=== PATIENT | male | born 1950 | race Hispanic/Latino ===

== ENCOUNTER 2016-09-29 19:17 | Inpatient (IN) | payer BC ==
[2016-09-29] MEDS ORDERED: NACL 0.9% 1000 ML 1,000 ML IV ONE (21:35)
[2016-09-29 21:54] LABS: Basophils % (Auto) 0.1 % (0.0-1.8); Eosinophils % (Auto) 1.2 % (0.0-4.3); Hematocrit 39.1 % (35.5-45.6); Hemoglobin 12.3 gm/dl (11.8-15.2); Mean Corpuscular HGB Conc 32 % (32-34); Mean Corpuscular Volume 75 fl (84-94); Platelet Count 422 K/mm3 (140-440); Red Cell Distribution Width 18.7 % (13.2-15.2); White Blood Count 12.5 K/mm3 (4.5-11.0)
[2016-09-29 21:58] LABS: Mean Corpuscular Hemoglobin 24 pg (28-32)
--- NOTE | 2016-09-29 22:03 | Emergency Department Report ---
- General Chief complaint: Weakness Stated complaint: GENERAL WEAKNESS Time Seen by Provider: 09/29/16 20:38 Source: EMS Mode of arrival: Stretcher Limitations: Altered Mental Status, Physical Limitation - History of Present Illness Initial comments: 65-year-old male with a past medical history of lung cancer with metastasis, septic arthritis of the left knee in the past, diabetes, GERD, and hypertension presents to Hospital complains of generalized weakness. Patient states he has been able to move the past 4 days and has remained in his bed. He was found by EMS covered in urine and feces. Patient states he is taking an oral pill daily for his metastatic lung cancer denies previous history of IV chemotherapy or radiation. Patient denies fever. His chronic moderate bilateral knee pain which prevents him from walking. Pain is constant, worse palpation and movement P. He Has not had much to eat or drink in several days due to confinement to bed. Severity scale (0 -10): 0 - Related Data Home Medications Medication Instructions Recorded Confirmed Last Taken Famotidine [Pepcid] 20 mg PO DAILY 04/23/16 04/23/16 04/22/16 Previous Rx's Medication Instructions Recorded Last Taken Type Aspirin [Aspirin TAB] 325 mg PO QDAY #30 tablet 03/20/16 04/13/16 Rx Metoprolol [Lopressor TAB] 50 mg PO BID #60 tablet 03/20/16 04/22/16 Rx Potassium Chloride [K-Dur] 20 meq PO QDAY #30 tablet 03/20/16 04/22/16 Rx hydrALAZINE [Apresoline TAB] 25 mg PO Q8HR #90 tablet 03/20/16 04/22/16 Rx Hydrochlorothiazide [HCTZ] 25 mg PO QDAY tablet 06/03/16 Unknown Rx Lisinopril [Zestril TAB] 40 mg PO QDAY tablet 06/03/16 Unknown Rx NIFEdipine XL [Procardia Xl] 60 mg PO Q12H tablet 06/03/16 Unknown Rx oxyCODONE /ACETAMINOPHEN [Percocet 1 tab PO Q6H PRN #8 tablet 06/03/16 Unknown Rx 5/325 mg] Dexamethasone [Decadron] 4 mg PO Q12HR tablet 06/10/16 Unknown Rx Mirtazapine [Remeron] 15 mg PO QHS tablet 06/10/16 Unknown Rx Sertraline [Zoloft] 25 mg PO QDAY tablet 06/10/16 Unknown Rx Allergies Allergy/AdvReac Type Severity Reaction Status Date / Time No Known Allergies Allergy Unverified 11/10/15 21:08 ED Review of Systems ROS: Stated complaint: GENERAL WEAKNESS Other details as noted in HPI Comment: All other systems reviewed and negative Other: Constitutional: No fevers chills Eyes: No eye pain visual changes ENT: No ear pain or throat pain Neck: Denies pain Respiratory: Denies cough wheezing shortness of breath Cardiovascular: Denies chest pain, palpitations, syncope GI: Denies abdominal pain, nausea, vomiting : Denies dysuria Musculoskeletal: Denies back pain, Skin: Denies rash, lesions, erythema Neurologic: Denies headache ED Past Medical Hx - Past Medical History Previous Medical History?: Yes Hx Hypertension: Yes Hx Congestive Heart Failure: No Hx Diabetes: Yes (oral medication) Hx GERD: Yes Hx Arthritis: Yes (Left knee) Hx Asthma: No Hx COPD: No Hx HIV: No - Surgical History Past Surgical History?: No - Social History Smoking Status: Current Some Day Smoker - Medications Home Medications: Home Medications Medication Instructions Recorded Confirmed Last Taken Type Aspirin [Aspirin TAB] 325 mg PO QDAY #30 tablet 03/20/16 04/23/16 04/13/16 Rx Metoprolol [Lopressor TAB] 50 mg PO BID #60 tablet 03/20/16 04/23/16 04/22/16 Rx Potassium Chloride [K-Dur] 20 meq PO QDAY #30 tablet 03/20/16 04/23/16 04/22/16 Rx hydrALAZINE [Apresoline TAB] 25 mg PO Q8HR #90 tablet 03/20/16 04/23/16 Rx Famotidine [Pepcid] 20 mg PO DAILY 04/23/16 04/23/16 04/22/16 History Hydrochlorothiazide [HCTZ] 25 mg PO QDAY tablet 06/03/16 Unknown Rx Lisinopril [Zestril TAB] 40 mg PO QDAY tablet 06/03/16 Unknown Rx NIFEdipine XL [Procardia Xl] 60 mg PO Q12H tablet 06/03/16 Unknown Rx oxyCODONE /ACETAMINOPHEN [Percocet 1 tab PO Q6H PRN #8 tablet 06/03/16 Unknown Rx 5/325 mg] Dexamethasone [Decadron] 4 mg PO Q12HR tablet 06/10/16 Unknown Rx Mirtazapine [Remeron] 15 mg PO QHS tablet 06/10/16 Unknown Rx Sertraline [Zoloft] 25 mg PO QDAY tablet 06/10/16 Unknown Rx ED Physical Exam - General Limitations: Altered Mental Status, Physical Limitation - Other Other exam information: General: No limitations, patient is alert in no acute distress Head exam: Atraumatic, normocephalic Eyes exam: Normal appearance, pupils equal reactive to light, extraocular movements intact ENT: Moist mucous membrane, normal oropharynx Neck exam: Normal inspection, full range of motion, no meningismus nontender Respiratory exam: Clear to auscultation bilateral, no wheezes, rales, crackles Cardiovascular: Normal rate and rhythm, normal heart sounds Abdomen: Soft, nondistended, and nontender, with normal bowel sounds, no rebound, or guarding Extremity: Patient has bilateral lower extremity edema. Patient has pain to bilateral knees with movement and cannot lift his leg or flex his knee secondary to pain Back: Normal Inspection, full range of motion, no tenderness Neurologic: Alert, oriented x3, cranial nerves intact, nsation is grossly intact. 5/5 upper extremity strength. Equal foot dorsiflexion of unable to lift either leg off the bed secondary to pain Psychiatric: normal affect, normal mood Skin: Warm, dry, intact ED Course Vital Signs 09/29/16 09/29/16 20:01 20:59 Temperature 100.1 F H 99.8 F H Pulse Rate 116 H 115 H Respiratory 20 26 H Rate Blood Pressure 149/91 Blood Pressure 153/92 [Left] O2 Sat by Pulse 100 94 Oximetry - Reevaluation(s) Reevaluation #1: 09/30/16 00:51 Normal saline initiated for tachycardia. Patient also receiving supplemental oxygenation. RN reported initial hypoxia and was patient was placed on O2. Will obtain ABG on room air to verify O2 sat if this patient is not on supplemental oxygen although does have a history of metastatic lung cancer. PT denies sob or cp 09/30/16 00:51 09/30/16 00:52 09/30/16 00:54 ED Medical Decision Making - Lab Data Result diagrams: 09/29/16 21:20 09/29/16 21:20 Lab Results 09/29/16 09/29/16 09/29/16 Range/Units 21:20 21:20 21:20 WBC 12.5 H (4.5-11.0) K/mm3 RBC 5.20 H (3.65-5.03) M/mm3 Hgb 12.3 (11.8-15.2) gm/dl Hct 39.1 (35.5-45.6) % MCV 75 L (84-94) fl MCH 24 L (28-32) pg MCHC 32 (32-34) % RDW 18.7 H (13.2-15.2) % Plt Count 422 (140-440) K/mm3 Lymph % (Auto) 11.8 L (13.4-35.0) % [place] % (Auto) 5.7 (0.0-7.3) % Eos % (Auto) 1.2 (0.0-4.3) % Baso % (Auto) 0.1 (0.0-1.8) % Lymph # 1.5 (1.2-5.4) K/mm3 [place] # 0.7 (0.0-0.8) K/mm3 Eos # 0.2 (0.0-0.4) K/mm3 Baso # 0.0 (0.0-0.1) K/mm3 Seg Neutrophils % 81.2 H (40.0-70.0) % Seg Neutrophils # 10.2 H (1.8-7.7) K/mm3 PT (12.2-14.9) Sec. INR (0.87-1.13) Sodium 142 (137-145) mmol/L Potassium 4.0 (3.6-5.0) mmol/L Chloride 103.3 (98-107) mmol/L Carbon Dioxide 23 (22-30) mmol/L Anion Gap 20 mmol/L BUN 13 (9-20) mg/dL Creatinine 0.7 L (0.8-1.5) mg/dL Estimated GFR > 60 ml/min BUN/Creatinine Ratio 18.57 % Glucose 156 H (75-100) mg/dL Lactic Acid 1.8 (0.7-2.0) mmol/L Calcium 7.9 L (8.4-10.2) mg/dL Magnesium 2.0 (1.7-2.3) mg/dL Total Bilirubin 0.6 (0.1-1.2) mg/dL AST 13 (5-40) units/L ALT 11 (7-56) units/L Alkaline Phosphatase 68 (35-129) units/L Total Creatine Kinase (55-170) units/L CK-MB (CK-2) (0.0-4.0) ng/mL CK-MB (CK-2) Rel Index (0-4) Troponin T (0.00-0.029) ng/mL Total Protein 6.5 (6.3-8.2) g/dL Albumin 3.1 L (3.9-5) g/dL Albumin/Globulin Ratio 0.9 % TSH (0.270-4.200) mlU/mL Free T4 (0.76-1.46) ng/dL Urine Color (Yellow) Urine Turbidity (Clear) Urine pH (5.0-7.0) Ur Specific [place] (1.003-1.030) Urine Protein (Negative) mg/dL Urine Glucose (UA) (Negative) mg/dL Urine Ketones (Negative) mg/dL Urine Blood (Negative) Urine Nitrite (Negative) Urine Bilirubin (Negative) Urine Urobilinogen (<2.0) mg/dL Ur Leukocyte Esterase (Negative) Urine WBC (Auto) (0.0-6.0) /HPF Urine RBC (Auto) (0.0-6.0) /HPF U Epithel Cells (Auto) (0-13.0) /HPF Salicylates (2.8-20.0) mg/dL Acetaminophen (10.0-30.0) ug/mL Plasma/Serum Alcohol (0-0.07) gm% 09/29/16 09/29/16 09/29/16 Range/Units 21:20 21:20 21:20 WBC (4.5-11.0) K/mm3 RBC (3.65-5.03) M/mm3 Hgb (11.8-15.2) gm/dl Hct (35.5-45.6) % MCV (84-94) fl MCH (28-32) pg MCHC (32-34) % RDW (13.2-15.2) % Plt Count (140-440) K/mm3 Lymph % (Auto) (13.4-35.0) % [place] % (Auto) (0.0-7.3) % Eos % (Auto) (0.0-4.3) % Baso % (Auto) (0.0-1.8) % Lymph # (1.2-5.4) K/mm3 [place] # (0.0-0.8) K/mm3 Eos # (0.0-0.4) K/mm3 Baso # (0.0-0.1) K/mm3 Seg Neutrophils % (40.0-70.0) % Seg Neutrophils # (1.8-7.7) K/mm3 PT (12.2-14.9) Sec. INR (0.87-1.13) Sodium (137-145) mmol/L Potassium (3.6-5.0) mmol/L Chloride (98-107) mmol/L Carbon Dioxide (22-30) mmol/L Anion Gap mmol/L BUN (9-20) mg/dL Creatinine (0.8-1.5) mg/dL Estimated GFR ml/min BUN/Creatinine Ratio % Glucose (75-100) mg/dL Lactic Acid (0.7-2.0) mmol/L Calcium (8.4-10.2) mg/dL Magnesium (1.7-2.3) mg/dL Total Bilirubin (0.1-1.2) mg/dL AST (5-40) units/L ALT (7-56) units/L Alkaline Phosphatase (35-129) units/L Total Creatine Kinase (55-170) units/L CK-MB (CK-2) (0.0-4.0) ng/mL CK-MB (CK-2) Rel Index (0-4) Troponin T (0.00-0.029) ng/mL Total Protein (6.3-8.2) g/dL Albumin (3.9-5) g/dL Albumin/Globulin Ratio % TSH 7.590 H (0.270-4.200) mlU/mL Free T4 (0.76-1.46) ng/dL Urine Color (Yellow) Urine Turbidity (Clear) Urine pH (5.0-7.0) Ur Specific [place] (1.003-1.030) Urine Protein (Negative) mg/dL Urine Glucose (UA) (Negative) mg/dL Urine Ketones (Negative) mg/dL Urine Blood (Negative) Urine Nitrite (Negative) Urine Bilirubin (Negative) Urine Urobilinogen (<2.0) mg/dL Ur Leukocyte Esterase (Negative) Urine WBC (Auto) (0.0-6.0) /HPF Urine RBC (Auto) (0.0-6.0) /HPF U Epithel Cells (Auto) (0-13.0) /HPF Salicylates < 0.3 L (2.8-20.0) mg/dL Acetaminophen < 15.0 (10.0-30.0) ug/mL Plasma/Serum Alcohol (0-0.07) gm% 09/29/16 09/29/16 09/29/16 Range/Units 21:20 21:20 23:02 WBC (4.5-11.0) K/mm3 RBC (3.65-5.03) M/mm3 Hgb (11.8-15.2) gm/dl Hct (35.5-45.6) % MCV (84-94) fl MCH (28-32) pg MCHC (32-34) % RDW (13.2-15.2) % Plt Count (140-440) K/mm3 Lymph % (Auto) (13.4-35.0) % [place] % (Auto) (0.0-7.3) % Eos % (Auto) (0.0-4.3) % Baso % (Auto) (0.0-1.8) % Lymph # (1.2-5.4) K/mm3 [place] # (0.0-0.8) K/mm3 Eos # (0.0-0.4) K/mm3 Baso # (0.0-0.1) K/mm3 Seg Neutrophils % (40.0-70.0) % Seg Neutrophils # (1.8-7.7) K/mm3 PT (12.2-14.9) Sec. INR (0.87-1.13) Sodium (137-145) mmol/L Potassium (3.6-5.0) mmol/L Chloride (98-107) mmol/L Carbon Dioxide (22-30) mmol/L Anion Gap mmol/L BUN (9-20) mg/dL Creatinine (0.8-1.5) mg/dL Estimated GFR ml/min BUN/Creatinine Ratio % Glucose (75-100) mg/dL Lactic Acid (0.7-2.0) mmol/L Calcium (8.4-10.2) mg/dL Magnesium (1.7-2.3) mg/dL Total Bilirubin (0.1-1.2) mg/dL AST (5-40) units/L ALT (7-56) units/L Alkaline Phosphatase (35-129) units/L Total Creatine Kinase 169 (55-170) units/L CK-MB (CK-2) 2.2 (0.0-4.0) ng/mL CK-MB (CK-2) Rel Index 1.3 (0-4) Troponin T 0.035 H (0.00-0.029) ng/mL Total Protein (6.3-8.2) g/dL Albumin (3.9-5) g/dL Albumin/Globulin Ratio % TSH (0.270-4.200) mlU/mL Free T4 0.89 (0.76-1.46) ng/dL Urine Color (Yellow) Urine Turbidity (Clear) Urine pH (5.0-7.0) Ur Specific [place] (1.003-1.030) Urine Protein (Negative) mg/dL Urine Glucose (UA) (Negative) mg/dL Urine Ketones (Negative) mg/dL Urine Blood (Negative) Urine Nitrite (Negative) Urine Bilirubin (Negative) Urine Urobilinogen (<2.0) mg/dL Ur Leukocyte Esterase (Negative) Urine WBC (Auto) (0.0-6.0) /HPF Urine RBC (Auto) (0.0-6.0) /HPF U Epithel Cells (Auto) (0-13.0) /HPF Salicylates (2.8-20.0) mg/dL Acetaminophen (10.0-30.0) ug/mL Plasma/Serum Alcohol < 0.01 (0-0.07) gm% 09/29/16 09/30/16 Range/Units 23:02 00:24 WBC (4.5-11.0) K/mm3 RBC (3.65-5.03) M/mm3 Hgb (11.8-15.2) gm/dl Hct (35.5-45.6) % MCV (84-94) fl MCH (28-32) pg MCHC (32-34) % RDW (13.2-15.2) % Plt Count (140-440) K/mm3 Lymph % (Auto) (13.4-35.0) % [place] % (Auto) (0.0-7.3) % Eos % (Auto) (0.0-4.3) % Baso % (Auto) (0.0-1.8) % Lymph # (1.2-5.4) K/mm3 [place] # (0.0-0.8) K/mm3 Eos # (0.0-0.4) K/mm3 Baso # (0.0-0.1) K/mm3 Seg Neutrophils % (40.0-70.0) % Seg Neutrophils # (1.8-7.7) K/mm3 PT 14.6 (12.2-14.9) Sec. INR 1.15 H (0.87-1.13) Sodium (137-145) mmol/L Potassium (3.6-5.0) mmol/L Chloride (98-107) mmol/L Carbon Dioxide (22-30) mmol/L Anion Gap mmol/L BUN (9-20) mg/dL Creatinine (0.8-1.5) mg/dL Estimated GFR ml/min BUN/Creatinine Ratio % Glucose (75-100) mg/dL Lactic Acid (0.7-2.0) mmol/L Calcium (8.4-10.2) mg/dL Magnesium (1.7-2.3) mg/dL Total Bilirubin (0.1-1.2) mg/dL AST (5-40) units/L ALT (7-56) units/L Alkaline Phosphatase (35-129) units/L Total Creatine Kinase (55-170) units/L CK-MB (CK-2) (0.0-4.0) ng/mL CK-MB (CK-2) Rel Index (0-4) Troponin T (0.00-0.029) ng/mL Total Protein (6.3-8.2) g/dL Albumin (3.9-5) g/dL Albumin/Globulin Ratio % TSH (0.270-4.200) mlU/mL Free T4 (0.76-1.46) ng/dL Urine Color [place] (Yellow) Urine Turbidity Clear (Clear) Urine pH 6.0 (5.0-7.0) Ur Specific [place] 1.024 (1.003-1.030) Urine Protein 30 mg/dl (Negative) mg/dL Urine Glucose (UA) 50 (Negative) mg/dL Urine Ketones Tr (Negative) mg/dL Urine Blood Sm (Negative) Urine Nitrite Neg (Negative) Urine Bilirubin Neg (Negative) Urine Urobilinogen < 2.0 (<2.0) mg/dL Ur Leukocyte Esterase Neg (Negative) Urine WBC (Auto) < 1.0 (0.0-6.0) /HPF Urine RBC (Auto) 8.0 (0.0-6.0) /HPF U Epithel Cells (Auto) < 1.0 (0-13.0) /HPF Salicylates (2.8-20.0) mg/dL Acetaminophen (10.0-30.0) ug/mL Plasma/Serum Alcohol (0-0.07) gm% - EKG Data -: EKG Interpreted by Me (sinus tach 113 LAFB) - Radiology Data Radiology results: image reviewed (cxr: met dz appears somewhat improved compared to previous cxr no acute findings) - Medical Decision Making ABG reviewed and patient has hypoxia room air with a PO2 less than 60 therefore patient may qualify for home oxygen. Patient will be admitted to the hospital for further workup and evaluation. PT is unable to ambulate it may require additional care at home. Patient also has a mild elevation in troponin without ST elevation or T-wave inversions. - Differential Diagnosis dehydration, renal failure, infection, rhabdomyolysis Critical Care Time: No Critical care attestation.: If time is entered above; I have spent that time in minutes in the direct care of this critically ill patient, excluding procedure time. ED Disposition Clinical Impression: Lung cancer, Lung metastasis, Bilateral knee pain, Effusion of knee joint right , Diabetes, Generalized weakness, Inability to ambulate due to knee, Hypoxia, Elevated troponin Disposition: OP ADMITTED IP TO THIS HOSP Is pt being admited?: Yes Condition: Stable Time of Disposition: 23:52 (Dr cedeno/hosp)
[2016-09-29 22:37] LABS: Alanine Aminotransferase 11 units/L (7-56); Albumin 3.1 g/dL (3.9-5); Albumin/Globulin Ratio 0.9 %; Alkaline Phosphatase 68 units/L (35-129); Anion Gap 20 mmol/L; BUN/Creatinine Ratio 18.57; Bilirubin,Total 0.6 mg/dL (0.1-1.2); Blood Urea Nitrogen 13 mg/dL (9-20); Calcium 7.9 mg/dL (8.4-10.2); Carbon Dioxide 23 mmol/L (22-30); Chloride 103.3 mmol/L (98-107); Glucose 156 mg/dL (75-100); Sodium 142 mmol/L (137-145); Total Protein 6.5 g/dL (6.3-8.2)
[2016-09-29 23:48] LABS: Creatine Kinase MB 2.2 ng/mL (0.0-4.0)
[2016-09-29 23:58] LABS: INR 1.15 (0.87-1.13)
[2016-09-30 00:34] LABS: Urine Drugs of Abuse Note Disclamer
[2016-09-30 00:47] LABS: Bilirubin,Urine NEG (Negative); Blood,Urine SM (Negative); Ketones,Urine TR mg/dL (Negative); Leukocyte Esterase,Urine NEG (Negative); Nitrite,Urine NEG (Negative); Urobilinogen,Urine < 2.0 mg/dL (<2.0); WBC,Urine < 1.0 /HPF (0.0-6.0)
[2016-09-30] MEDS ORDERED: NACL 0.9% 1000 ML 1,000 ML ONE (01:13)
[2016-09-30 01:18] LABS: ISTAT Base Excess -4; ISTAT DEVICE 0; ISTAT PCO2 28.7 (35-45); ISTAT PH 7.451 (7.35-7.45); ISTAT PO2 54 (80-105); ISTAT SO2 90; ISTAT TCO2 21
--- NOTE | 2016-09-30 02:25 | Admit Criteria Form ---
Admission Criteria Documentation: MUSCULOSKELETAL DISEASE GRG Clinical Indications for Admission to Inpatient Care (Place 'X' for any and all applicable criteria): Hospital admission is needed for appropriate care of the patient because of ANY ONE of the following: [ ]I. Fracture, dislocation, or other musculoskeletal injury requiring inpatient care(medical) as indicated by ANY ONE of the following(4)(5)(6)(7) [ ]a) Vertebral fracture requiring observation for instability or neurologic compromise (8) [ ]b) Compartment syndrome (proven or cannot be ruled out during observation level of care) (9) [ ]c) Limb-threatening injury [ ]d) Major injury requiring inpatient stabilization such as traction initiation or external fixation before internal fixation or closure of complex or open fracture [ ]e) Major injury requiring inpatient treatment after emergency or observation level care (as appropriate) [ ]f) Severe pain requiring acute inpatient management [X ]II. Newly diagnosed or suspected bone, joint, or orthopedic device infection (e.g., osteomyelitis, septic arthritis) needing ANY ONE of the following(1)(2)(3) [ X]a) IV antibiotics that cannot be initiated in other than inpatient setting (e.g., patient too unstable or home infusion not available) [ ]b) Device removal or replacement [ ]c) Bone or soft tissue debridement [ ]d) Joint drainage (drain placement or repetitive aspirations) [ ]III. Severe rheumatologic disease (e.g., systemic lupus erythematosus, rheumatoid arthritis) with complications or comorbidities (Also use Optimal Recovery Care Criteria or General Recovery Criteria as appropriate on the basis of predominant condition), including ANY ONE of the following(10 )(11)(12)(13) [ ]a) Severe infection (e.g., INSIDE SALES [employer]OUNT EXECUTIVE infection, sepsis) (14) [ ]b) Respiratory complications, including ANY ONE of the following: [ ]i) Pleural effusion with respiratory compromise [ ]ii) Pulmonary hypertension with congestive failure [ ]iii) Respiratory failure [ ]iv) Pulmonary hemorrhage (15) [ ]c) Hematologic disease, including ANY ONE of the following: [ ]i) Coagulopathy with bleeding [ ]ii) Thrombosis with hypercoagulable state [ ]iii) Thrombotic thrombocytopenic purpura [ ]d) Cerebritis with seizures, psychosis, or other severe abnormalities [ ]e) Vertebral destruction with monitoring needed for cervical myelopathy& possible respiratory compromise [ ]f) Exacerbation that requires inpatient treatment (e.g., intravenous immunosuppression) (16) [ ]g) Acute renal failure [ ]IV. Severe vasculitis with complications or comorbidities (Also use Optimal Recovery Care Criteria or General Recovery Criteria as appropriate on the basis of predominant condition), including ANY ONE of the following(11)(12)(17)(18)(19)(20) [ ]a) INS[employer] SALES [employer]OUNT EXECUTIVE vasculitis with seizures, psychosis, or other severe abnormalities (22) [ ]b) Renal failure (16) [ ]c) Pulmonary hemorrhage (15) [ ]d) Cerebral infarction [ ]e) Gastrointestinal ischemia [ ]f) Gangrene or threatened amputation [ ]g) Exacerbation that requires inpatient treatment (e.g., intravenous immunosuppression) (19)(21) [ ]V. Severe myopathy as indicated by ANY ONE of the following (28)(29) [ ]a) New onset of airway compromise or inability to swallow [ ]b) Respiratory deterioration with observation needed for impending respiratory failure [ ]c) Exacerbation that requires inpatient treatment (e.g., intravenous immunosuppression) [ ]. Severe gout (crystal arthropathy) as indicated by ANY ONE of the following (23)(24) [ ]a) Severe pain requiring acute inpatient management [ ]b) Exacerbation that requires inpatient treatment (e.g., intravenous treatment) [ ]VII.Rhabdomyolysis and ANY ONE of the following (25)(26)(27) [ ]a) Acute renal failure [ ]b) Need for intravenous hydration after emergency or observation level care (as appropriate) [ ]c) Inability to maintain oral hydration [ ]d) Change in mental status [ ]e) Electrolyte abnormality that remains after emergency or observation level care (as appropriate) [ ]VIII Post amputation complication, as indicated by ANY ONE of the following [ ]a) Infection [ ]b) Dehiscence [ ]c) Myodesis failure [ ]IX. Severe pain requiring acute inpatient management as indicated by ALL of the following (30)(31)(32) [ ]a) Continuous or frequent (e.g., every 2 to 4 hrs) parenteral analgesics required [A] [ ]b) Rapid improvement expected from treatment or acute intervention ( e.g., surgery, anesthesia procedure[B] [ ]X. Musculoskeletal Disease and ALL of the following: [ ]a) Symptom or finding for which emergency and observation care have failed or are not considered appropriate (Use General Criteria: Observation Care as appropriate) [ ]b) Presence of ANY ONE of the following [ ]i) A General Admission Criteria [ ]ii) A Pediatric General Admission Criteria The original [facility] content created by [facility] has been revised. The portions of the content which have been revised are identified through the use of italic text or in bold, and [facility] has neither reviewed nor approved the modified material. All other unmodified content is copyright [facility]. Please see references footnoted in the original [facility] edition 2016 Admission Criteria Met: Yes
[2016-09-30] MEDS ORDERED: PERCOCET 5/325 PO PRN ×2 (03:45→13:43)
--- NOTE | 2016-09-30 03:45 | History and Physical Report ---
History of Present Illness Date of examination: 09/30/16 History of present illness: 65-year-old man with a history of metastatic lung cancer, hypertension, diabetes , GERD comes emergency room with complaints of nonbloody diarrhea 2. Patient stated diarrhea started after he started chemotherapy 9 days ago. Over the last 4 days he's been at home in bed unable to get out of bed because he is extremely weak . His roommate called EMS, EMS found him covered in stool and urine Patient denies chest pain, palpitation, shortness of breath, cough, abdominal pain, hematochezia, dysuria, frequency, focal weakness, dysarthria, fever chills , polydipsia polyuria, hot or cold intolerance, easy bruisability, or rash or bleeding from mucosal membrane, rhinorrhea, epistaxis, earache, tinnitus, blurry vision, eye discharge, anxiety, depression. Other review of systems negative PAST SURGICAL HISTORY: None SOCIAL HISTORY: Denies alcohol, tobacco, drugs FAMILY HISTORY: Hypertension Medications and Allergies Allergies Allergy/AdvReac Type Severity Reaction Status Date / Time No Known Allergies Allergy Unverified 11/10/15 21:08 Home Medications Medication Instructions Recorded Confirmed Last Taken Type Aspirin [Aspirin TAB] 325 mg PO QDAY #30 tablet 03/20/16 04/23/16 04/13/16 Rx Metoprolol [Lopressor TAB] 50 mg PO BID #60 tablet 03/20/16 04/23/16 04/22/16 Rx Potassium Chloride [K-Dur] 20 meq PO QDAY #30 tablet 03/20/16 04/23/16 04/22/16 Rx hydrALAZINE [Apresoline TAB] 25 mg PO Q8HR #90 tablet 03/20/16 04/23/16 Rx Famotidine [Pepcid] 20 mg PO DAILY 04/23/16 04/23/16 04/22/16 History Hydrochlorothiazide [HCTZ] 25 mg PO QDAY tablet 06/03/16 Unknown Rx Lisinopril [Zestril TAB] 40 mg PO QDAY tablet 06/03/16 Unknown Rx NIFEdipine XL [Procardia Xl] 60 mg PO Q12H tablet 06/03/16 Unknown Rx oxyCODONE /ACETAMINOPHEN [Percocet 1 tab PO Q6H PRN #8 tablet 06/03/16 Unknown Rx 5/325 mg] Dexamethasone [Decadron] 4 mg PO Q12HR tablet 06/10/16 Unknown Rx Mirtazapine [Remeron] 15 mg PO QHS tablet 06/10/16 Unknown Rx Sertraline [Zoloft] 25 mg PO QDAY tablet 06/10/16 Unknown Rx Exam - Physical Exam Narrative exam: Gen. appearance: Patient lying in bed, no apparent distress HEENT: Normocephalic, atraumatic, pupils equally round and reactive to light, extraocular movement intact, and no sclericterus,. No JVD or thyromegaly or nodule,neck supple, no carotid bruit ,mucous membranes dry, no exudate or erythema Heart: S1, S2, regular rate and rhythm Lungs: Clear to auscultation bilaterally, breathing comfortable Abdomen: Positive bowel sounds, nontender, nondistended, no organomegaly Extremity: No edema, cyanosis, clubbing Skin: No rash, nodules, warm, dry Neuro: Oriented 3, cranial nerves II-12 intact, speech is fluent, motor and sensory intact - Constitutional Vitals: Temp Pulse Resp BP Pulse Ox 99.8 F H 104 H 18 130/89 100 09/29/16 20:59 09/30/16 02:00 09/30/16 02:00 09/30/16 02:00 09/30/16 02:00 Results - Labs CBC & Chem 7: 09/29/16 21:20 09/29/16 21:20 Labs: Abnormal lab results 09/29/16 09/29/16 09/29/16 Range/Units 21:20 21:20 21:20 WBC 12.5 H (4.5-11.0) K/mm3 RBC 5.20 H (3.65-5.03) M/mm3 MCV 75 L (84-94) fl MCH 24 L (28-32) pg RDW 18.7 H (13.2-15.2) % Lymph % (Auto) 11.8 L (13.4-35.0) % Seg Neutrophils % 81.2 H (40.0-70.0) % Seg Neutrophils # 10.2 H (1.8-7.7) K/mm3 INR (0.87-1.13) POC ABG pH (7.35-7.45) POC ABG pCO2 (35-45) POC ABG pO2 (80-105) Creatinine 0.7 L (0.8-1.5) mg/dL Glucose 156 H (75-100) mg/dL Calcium 7.9 L (8.4-10.2) mg/dL Troponin T (0.00-0.029) ng/mL Albumin 3.1 L (3.9-5) g/dL Triglycerides (2-149) mg/dL Cholesterol (50-199) mg/dL TSH 7.590 H (0.270-4.200) mlU/mL Salicylates (2.8-20.0) mg/dL 09/29/16 09/29/16 09/29/16 Range/Units 21:20 23:02 23:02 WBC (4.5-11.0) K/mm3 RBC (3.65-5.03) M/mm3 MCV (84-94) fl MCH (28-32) pg RDW (13.2-15.2) % Lymph % (Auto) (13.4-35.0) % Seg Neutrophils % (40.0-70.0) % Seg Neutrophils # (1.8-7.7) K/mm3 INR 1.15 H (0.87-1.13) POC ABG pH (7.35-7.45) POC ABG pCO2 (35-45) POC ABG pO2 (80-105) Creatinine (0.8-1.5) mg/dL Glucose (75-100) mg/dL Calcium (8.4-10.2) mg/dL Troponin T 0.035 H (0.00-0.029) ng/mL Albumin (3.9-5) g/dL Triglycerides 154 H (2-149) mg/dL Cholesterol 200 H (50-199) mg/dL TSH (0.270-4.200) mlU/mL Salicylates < 0.3 L (2.8-20.0) mg/dL 09/30/16 Range/Units 01:12 WBC (4.5-11.0) K/mm3 RBC (3.65-5.03) M/mm3 MCV (84-94) fl MCH (28-32) pg RDW (13.2-15.2) % Lymph % (Auto) (13.4-35.0) % Seg Neutrophils % (40.0-70.0) % Seg Neutrophils # (1.8-7.7) K/mm3 INR (0.87-1.13) POC ABG pH 7.451 H (7.35-7.45) POC ABG pCO2 28.7 L (35-45) POC ABG pO2 54 L (80-105) Creatinine (0.8-1.5) mg/dL Glucose (75-100) mg/dL Calcium (8.4-10.2) mg/dL Troponin T (0.00-0.029) ng/mL Albumin (3.9-5) g/dL Triglycerides (2-149) mg/dL Cholesterol (50-199) mg/dL TSH (0.270-4.200) mlU/mL Salicylates (2.8-20.0) mg/dL Assessment and Plan Failure to thrive Diarrhea, rule out infection Abnormal cardiac enzymes Hypertension Diabetes Metastatic lung cancer GERD Admits medicine Start IV fluids, check stool studies Check fingersticks initiate insulin sliding scale Check cardiac enzymes, echo Consult physical therapy Start DVT prophylaxis Continue outpatient medications
--- NOTE | 2016-09-30 10:45 | XRay Report ---
AP CHEST :09/29/16 19:17:00 CLINICAL: Hypoxia COMPARISON:05/30/16 FINDINGS: Normal heart and pulmonary vasculature. The lungs are normally expanded and clear. The bones and soft tissues are normal. IMPRESSION: No acute cardiopulmonary process.
[2016-09-30] MEDS ORDERED: ASPIRIN ONE (13:22)
[2016-09-30] MEDS ORDERED: PEPCID ONE (13:23)
[2016-09-30] MEDS ORDERED: LOPRESSOR ONE (13:23)
[2016-09-30] MEDS ORDERED: ZOLOFT ONE ×2 (13:23→13:30)
[2016-09-30] MEDS ORDERED: DECADRON ONE (13:29)
[2016-09-30] MEDS: PEPCID PO SCH (13:38)
[2016-09-30] MEDS: ASPIRIN PO SCH (13:38)
[2016-09-30] MEDS: DECADRON PO SCH ×2 (13:38→21:39)
[2016-09-30] MEDS: LOPRESSOR PO SCH ×2 (13:38→23:03)
[2016-09-30] MEDS: ZOLOFT PO SCH (13:38)
[2016-09-30] MEDS ORDERED: D50W (25GM) IV PRN (13:43)
[2016-09-30] MEDS ORDERED: DULCOLAX PR PRN (13:43)
[2016-09-30] MEDS ORDERED: MILK OF MAGNESIA PO PRN (13:43)
[2016-09-30] MEDS ORDERED: TYLENOL PO PRN (13:43)
[2016-09-30] MEDS ORDERED: LOVENOX SUB-Q SCH (13:43)
[2016-09-30] MEDS ORDERED: ZOFRAN IV PRN (13:43)
[2016-09-30] MEDS: LOVENOX SUB-Q SCH (18:11)
[2016-09-30] MEDS: NOVOLOG SUB-Q SCH ×3 (18:11→23:01)
[2016-09-30 19:50] LABS: Creatine Kinase MB 1.5 ng/mL (0.0-4.0)
[2016-09-30 19:51] LABS: Creatine Kinase 72 units/L (55-170)
[2016-09-30 20:40] LABS: Creatine Kinase MB 2.2 ng/mL (0.0-4.0)
[2016-09-30] MEDS: REMERON PO SCH (21:34)
[2016-10-01] MEDS: NACL 0.9% 1000 ML 1,000 ML IV SCH (03:56)
[2016-10-01 06:42] LABS: Eosinophils % (Auto) 0.1 % (0.0-4.3); Hematocrit 29.6 % (35.5-45.6); Hemoglobin 9.5 gm/dl (11.8-15.2); Mean Corpuscular HGB Conc 32 % (32-34); Mean Corpuscular Volume 75 fl (84-94); Platelet Count 295 K/mm3 (140-440); Red Blood Count 3.94 M/mm3 (3.65-5.03); Red Cell Distribution Width 18.6 % (13.2-15.2); White Blood Count 5.9 K/mm3 (4.5-11.0)
[2016-10-01 06:44] LABS: Mean Corpuscular Hemoglobin 24 pg (28-32)
[2016-10-01 06:53] LABS: Anion Gap 15 mmol/L; Blood Urea Nitrogen 9 mg/dL (9-20); Calcium 6.8 mg/dL (8.4-10.2); Carbon Dioxide 24 mmol/L (22-30); Chloride 105.6 mmol/L (98-107); Glucose 190 mg/dL (75-100); Potassium 3.7 mmol/L (3.6-5.0); Sodium 141 mmol/L (137-145)
[2016-10-01] MEDS: NOVOLOG SUB-Q SCH ×4 (09:32→22:37)
[2016-10-01] MEDS: PEPCID PO SCH (12:03)
[2016-10-01] MEDS: LOVENOX SUB-Q SCH (12:04)
[2016-10-01] MEDS: DECADRON PO SCH ×2 (12:04→22:35)
[2016-10-01] MEDS: ZOLOFT PO SCH (12:04)
[2016-10-01] MEDS: ASPIRIN PO SCH (12:04)
[2016-10-01] MEDS: LOPRESSOR PO SCH ×2 (12:07→22:35)
--- NOTE | 2016-10-01 19:17 | Progress Note ---
Assessment and Plan Assessment and plan: 1. Diarrhea Watery diarrhea that started after chemotherapy Low grade fever and elevated WBC on admission Stool studies orfered, but not obtained yet Supportive care, IV fluids, electrolytes replacement as needed 2. Anemia Likely secondary to malignancy Monitor H&H 3. Metastatic lung cancer Stage IV LLL adenocarcinoma with multiple metastasis Receiving chemotherapy and radiotherapy Also on dexamethasone 4. Hypertension BP controlled only on metoprolol 5. Diabetes Accu-Cheks and SSI 6. Depression On Fluoxetine and Remeron 7. Malnutrition Secondary to malignancy/poor intake Diet supplementation 8. GI/DVT prophylaxis Lovenox History Interval history: still having diarrhea; but stool studies not obtained Complaining of generalized weakness Hospitalist Physical - Constitutional Vitals: Temp Pulse Resp BP Pulse Ox 97.9 F 69 20 119/74 94 10/01/16 07:10 10/01/16 15:40 10/01/16 15:40 10/01/16 15:40 10/01/16 07:49 General appearance: Present: no acute distress - EENT Eyes: Present: PERRL, EOM intact - Neck Neck: Present: supple, normal ROM. Absent: masses or JVD - Respiratory Respiratory effort: normal Respiratory: bilateral: diminished (L>R), rhonchi, negative: wheezing - Cardiovascular Rhythm: regular Heart Sounds: Present: S1 & S2. Absent: systolic murmur - Extremities Extremities: no ischemia - Abdominal General gastrointestinal: soft, non-tender, non-distended, normal bowel sounds - Integumentary Integumentary: Present: warm, dry, pale. Absent: jaundice - Psychiatric Psychiatric: cooperative - Neurologic Neurologic: CNII-XII intact, no focal deficits Results - Labs CBC & Chem 7: 10/04/16 05:28 10/01/16 06:00 Labs: Laboratory Last Values WBC 5.9 K/mm3 (4.5-11.0) 10/01/16 06:00 RBC 3.94 M/mm3 (3.65-5.03) 10/01/16 06:00 Hgb 9.5 gm/dl (11.8-15.2) L 10/01/16 06:00 Hct 29.6 % (35.5-45.6) L D 10/01/16 06:00 MCV 75 fl (84-94) L 10/01/16 06:00 MCH 24 pg (28-32) L 10/01/16 06:00 MCHC 32 % (32-34) 10/01/16 06:00 RDW 18.6 % (13.2-15.2) H 10/01/16 06:00 Plt Count 295 K/mm3 (140-440) 10/01/16 06:00 Lymph % (Auto) 15.0 % (13.4-35.0) 10/01/16 06:00 [place] % (Auto) 5.0 % (0.0-7.3) 10/01/16 06:00 Eos % (Auto) 0.1 % (0.0-4.3) 10/01/16 06:00 Baso % (Auto) 0.0 % (0.0-1.8) 10/01/16 06:00 Lymph # 0.9 K/mm3 (1.2-5.4) L 10/01/16 06:00 [place] # 0.3 K/mm3 (0.0-0.8) 10/01/16 06:00 Eos # 0.0 K/mm3 (0.0-0.4) 10/01/16 06:00 Baso # 0.0 K/mm3 (0.0-0.1) 10/01/16 06:00 Seg Neutrophils % 79.9 % (40.0-70.0) H 10/01/16 06:00 Seg Neutrophils # 4.7 K/mm3 (1.8-7.7) 10/01/16 06:00 PT 14.6 Sec. (12.2-14.9) 09/29/16 23:02 INR 1.15 (0.87-1.13) H 09/29/16 23:02 POC ABG pH 7.451 (7.35-7.45) H 09/30/16 01:12 POC ABG pCO2 28.7 (35-45) L 09/30/16 01:12 POC ABG pO2 54 (80-105) L 09/30/16 01:12 POC ABG HCO3 20.0 09/30/16 01:12 POC ABG Total CO2 21 09/30/16 01:12 POC ABG O2 Sat 90 09/30/16 01:12 POC ABG Base Excess -4 09/30/16 01:12 FiO2 21 % 09/30/16 01:12 Sodium 141 mmol/L (137-145) 10/01/16 06:00 Potassium 3.7 mmol/L (3.6-5.0) 10/01/16 06:00 Chloride 105.6 mmol/L (98-107) 10/01/16 06:00 Carbon Dioxide 24 mmol/L (22-30) 10/01/16 06:00 Anion Gap 15 mmol/L 10/01/16 06:00 BUN 9 mg/dL (9-20) 10/01/16 06:00 Creatinine 0.6 mg/dL (0.8-1.5) L 10/01/16 06:00 Estimated GFR > 60 ml/min 10/01/16 06:00 BUN/Creatinine Ratio 15.00 % 10/01/16 06:00 Glucose 190 mg/dL (75-100) H 10/01/16 06:00 POC Glucose 241 (70-105) H 10/01/16 16:59 Lactic Acid 2.0 mmol/L (0.7-2.0) 09/30/16 00:39 Calcium 6.8 mg/dL (8.4-10.2) L 10/01/16 06:00 Magnesium 2.0 mg/dL (1.7-2.3) 09/29/16 21:20 Total Bilirubin 0.6 mg/dL (0.1-1.2) 09/29/16 21:20 AST 13 units/L (5-40) 09/29/16 21:20 ALT 11 units/L (7-56) 09/29/16 21:20 Alkaline Phosphatase 68 units/L (35-129) 09/29/16 21:20 Total Creatine Kinase 79 units/L (55-170) 09/30/16 19:39 CK-MB (CK-2) 2.2 ng/mL (0.0-4.0) 09/30/16 19:39 CK-MB (CK-2) Rel Index 2.7 (0-4) 09/30/16 19:39 Troponin T 0.015 ng/mL (0.00-0.029) 09/30/16 19:39 Total Protein 6.5 g/dL (6.3-8.2) 09/29/16 21:20 Albumin 3.1 g/dL (3.9-5) L 09/29/16 21:20 Albumin/Globulin Ratio 0.9 % 09/29/16 21:20 Triglycerides 154 mg/dL (2-149) H 09/29/16 23:02 Cholesterol 200 mg/dL (50-199) H 09/29/16 23:02 LDL Cholesterol Direct 125 mg/dL (50-130) 09/29/16 23:02 HDL Cholesterol 45 mg/dL (40-59) 09/29/16 23:02 Cholesterol/HDL Ratio 4.44 % 09/29/16 23:02 TSH 7.590 mlU/mL (0.270-4.200) H 09/29/16 21:20 Free T4 0.89 ng/dL (0.76-1.46) 09/29/16 21:20 Urine Color [place] (Yellow) 09/30/16 00:24 Urine Turbidity Clear (Clear) 09/30/16 00:24 Urine pH 6.0 (5.0-7.0) 09/30/16 00:24 Ur Specific [place] 1.024 (1.003-1.030) 09/30/16 00:24 Urine Protein 30 mg/dl mg/dL (Negative) 09/30/16 00:24 Urine Glucose (UA) 50 mg/dL (Negative) 09/30/16 00:24 Urine Ketones Tr mg/dL (Negative) 09/30/16 00:24 Urine Blood Sm (Negative) 09/30/16 00:24 Urine Nitrite Neg (Negative) 09/30/16 00:24 Urine Bilirubin Neg (Negative) 09/30/16 00:24 Urine Urobilinogen < 2.0 mg/dL (<2.0) 09/30/16 00:24 Ur Leukocyte Esterase Neg (Negative) 09/30/16 00:24 Urine WBC (Auto) < 1.0 /HPF (0.0-6.0) 09/30/16 00:24 Urine RBC (Auto) 8.0 /HPF (0.0-6.0) 09/30/16 00:24 U Epithel Cells (Auto) < 1.0 /HPF (0-13.0) 09/30/16 00:24 Salicylates < 0.3 mg/dL (2.8-20.0) L 09/29/16 21:20 Urine Opiates Screen Presumptive negative 09/30/16 00:24 Urine Methadone Screen Presumptive negative 09/30/16 00:24 Acetaminophen < 15.0 ug/mL (10.0-30.0) 09/29/16 21:20 Ur Barbiturates Screen Presumptive negative 09/30/16 00:24 Ur Phencyclidine Scrn Presumptive negative 09/30/16 00:24 Ur Amphetamines Screen Presumptive negative 09/30/16 00:24 U Benzodiazepines Scrn Presumptive negative 09/30/16 00:24 Urine Cocaine Screen Presumptive negative 09/30/16 00:24 U Marijuana (THC) Screen Presumptive negative 09/30/16 00:24 Drugs of Abuse Note Disclamer 09/30/16 00:24 Plasma/Serum Alcohol < 0.01 gm% (0-0.07) 09/29/16 21:20 - Imaging and Cardiology Chest x-ray: image reviewed (diffuse bilateral metastasis)
[2016-10-01] MEDS: REMERON PO SCH (22:35)
[2016-10-02] MEDS: NACL 0.9% 1000 ML 1,000 ML IV SCH ×2 (02:47→17:25)
[2016-10-02] MEDS: NOVOLOG SUB-Q SCH ×4 (08:27→22:38)
[2016-10-02] MEDS: LOVENOX SUB-Q SCH (10:38)
[2016-10-02] MEDS: LOPRESSOR PO SCH ×2 (10:38→22:28)
[2016-10-02] MEDS: ASPIRIN PO SCH (10:38)
[2016-10-02] MEDS: PEPCID PO SCH (10:38)
[2016-10-02] MEDS: ZOLOFT PO SCH (10:38)
[2016-10-02] MEDS: DECADRON PO SCH ×2 (10:39→22:29)
--- NOTE | 2016-10-02 19:14 | Progress Note ---
Assessment and Plan Assessment and plan: 1. Diarrhea Watery diarrhea that started after chemotherapy Low grade fever and elevated WBC on admission Stool studies ordered, but still not obtained yet Supportive care, IV fluids, electrolytes replacement as needed 2. Anemia Likely secondary to malignancy Monitor H&H 3. Metastatic lung cancer Stage IV LLL adenocarcinoma with multiple metastasis Receiving chemotherapy and radiotherapy Also on dexamethasone 4. Hypertension BP controlled only on metoprolol 5. Diabetes Last A1C 7 Accu-Cheks and SSI 6. Depression On Fluoxetine and Remeron 7. Malnutrition Secondary to malignancy/poor intake Diet supplementation 8. GI/DVT prophylaxis Lovenox History Interval history: still having diarrhea; stool studies still not obtained complaining of generalized weakness Hospitalist Physical - Constitutional Vitals: Temp Pulse Resp BP Pulse Ox 98.1 F 62 20 156/86 96 10/02/16 17:00 10/02/16 17:00 10/02/16 17:00 10/02/16 17:00 10/02/16 17:00 General appearance: Present: no acute distress - EENT Eyes: Present: PERRL, EOM intact - Neck Neck: Present: supple, normal ROM. Absent: masses or JVD - Respiratory Respiratory effort: normal Respiratory: bilateral: diminished, rhonchi, negative: wheezing - Cardiovascular Rhythm: regular Heart Sounds: Present: S1 & S2. Absent: systolic murmur - Extremities Extremities: no ischemia - Abdominal General gastrointestinal: soft, non-tender, non-distended, normal bowel sounds - Psychiatric Psychiatric: cooperative - Neurologic Neurologic: CNII-XII intact, no focal deficits Results - Labs CBC & Chem 7: 10/04/16 05:28 10/01/16 06:00 Labs: Laboratory Last Values WBC 5.9 K/mm3 (4.5-11.0) 10/01/16 06:00 RBC 3.94 M/mm3 (3.65-5.03) 10/01/16 06:00 Hgb 9.5 gm/dl (11.8-15.2) L 10/01/16 06:00 Hct 29.6 % (35.5-45.6) L D 10/01/16 06:00 MCV 75 fl (84-94) L 10/01/16 06:00 MCH 24 pg (28-32) L 10/01/16 06:00 MCHC 32 % (32-34) 10/01/16 06:00 RDW 18.6 % (13.2-15.2) H 10/01/16 06:00 Plt Count 295 K/mm3 (140-440) 10/01/16 06:00 Lymph % (Auto) 15.0 % (13.4-35.0) 10/01/16 06:00 [place] % (Auto) 5.0 % (0.0-7.3) 10/01/16 06:00 Eos % (Auto) 0.1 % (0.0-4.3) 10/01/16 06:00 Baso % (Auto) 0.0 % (0.0-1.8) 10/01/16 06:00 Lymph # 0.9 K/mm3 (1.2-5.4) L 10/01/16 06:00 [place] # 0.3 K/mm3 (0.0-0.8) 10/01/16 06:00 Eos # 0.0 K/mm3 (0.0-0.4) 10/01/16 06:00 Baso # 0.0 K/mm3 (0.0-0.1) 10/01/16 06:00 Seg Neutrophils % 79.9 % (40.0-70.0) H 10/01/16 06:00 Seg Neutrophils # 4.7 K/mm3 (1.8-7.7) 10/01/16 06:00 PT 14.6 Sec. (12.2-14.9) 09/29/16 23:02 INR 1.15 (0.87-1.13) H 09/29/16 23:02 POC ABG pH 7.451 (7.35-7.45) H 09/30/16 01:12 POC ABG pCO2 28.7 (35-45) L 09/30/16 01:12 POC ABG pO2 54 (80-105) L 09/30/16 01:12 POC ABG HCO3 20.0 09/30/16 01:12 POC ABG Total CO2 21 09/30/16 01:12 POC ABG O2 Sat 90 09/30/16 01:12 POC ABG Base Excess -4 09/30/16 01:12 FiO2 21 % 09/30/16 01:12 Sodium 141 mmol/L (137-145) 10/01/16 06:00 Potassium 3.7 mmol/L (3.6-5.0) 10/01/16 06:00 Chloride 105.6 mmol/L (98-107) 10/01/16 06:00 Carbon Dioxide 24 mmol/L (22-30) 10/01/16 06:00 Anion Gap 15 mmol/L 10/01/16 06:00 BUN 9 mg/dL (9-20) 10/01/16 06:00 Creatinine 0.6 mg/dL (0.8-1.5) L 10/01/16 06:00 Estimated GFR > 60 ml/min 10/01/16 06:00 BUN/Creatinine Ratio 15.00 % 10/01/16 06:00 Glucose 190 mg/dL (75-100) H 10/01/16 06:00 POC Glucose 261 (70-105) H 10/02/16 15:47 Lactic Acid 2.0 mmol/L (0.7-2.0) 09/30/16 00:39 Calcium 6.8 mg/dL (8.4-10.2) L 10/01/16 06:00 Magnesium 2.0 mg/dL (1.7-2.3) 09/29/16 21:20 Total Bilirubin 0.6 mg/dL (0.1-1.2) 09/29/16 21:20 AST 13 units/L (5-40) 09/29/16 21:20 ALT 11 units/L (7-56) 09/29/16 21:20 Alkaline Phosphatase 68 units/L (35-129) 09/29/16 21:20 Total Creatine Kinase 79 units/L (55-170) 09/30/16 19:39 CK-MB (CK-2) 2.2 ng/mL (0.0-4.0) 09/30/16 19:39 CK-MB (CK-2) Rel Index 2.7 (0-4) 09/30/16 19:39 Troponin T 0.015 ng/mL (0.00-0.029) 09/30/16 19:39 Total Protein 6.5 g/dL (6.3-8.2) 09/29/16 21:20 Albumin 3.1 g/dL (3.9-5) L 09/29/16 21:20 Albumin/Globulin Ratio 0.9 % 09/29/16 21:20 Triglycerides 154 mg/dL (2-149) H 09/29/16 23:02 Cholesterol 200 mg/dL (50-199) H 09/29/16 23:02 LDL Cholesterol Direct 125 mg/dL (50-130) 09/29/16 23:02 HDL Cholesterol 45 mg/dL (40-59) 09/29/16 23:02 Cholesterol/HDL Ratio 4.44 % 09/29/16 23:02 TSH 7.590 mlU/mL (0.270-4.200) H 09/29/16 21:20 Free T4 0.89 ng/dL (0.76-1.46) 09/29/16 21:20 Urine Color [place] (Yellow) 09/30/16 00:24 Urine Turbidity Clear (Clear) 09/30/16 00:24 Urine pH 6.0 (5.0-7.0) 09/30/16 00:24 Ur Specific [place] 1.024 (1.003-1.030) 09/30/16 00:24 Urine Protein 30 mg/dl mg/dL (Negative) 09/30/16 00:24 Urine Glucose (UA) 50 mg/dL (Negative) 09/30/16 00:24 Urine Ketones Tr mg/dL (Negative) 09/30/16 00:24 Urine Blood Sm (Negative) 09/30/16 00:24 Urine Nitrite Neg (Negative) 09/30/16 00:24 Urine Bilirubin Neg (Negative) 09/30/16 00:24 Urine Urobilinogen < 2.0 mg/dL (<2.0) 09/30/16 00:24 Ur Leukocyte Esterase Neg (Negative) 09/30/16 00:24 Urine WBC (Auto) < 1.0 /HPF (0.0-6.0) 09/30/16 00:24 Urine RBC (Auto) 8.0 /HPF (0.0-6.0) 09/30/16 00:24 U Epithel Cells (Auto) < 1.0 /HPF (0-13.0) 09/30/16 00:24 Salicylates < 0.3 mg/dL (2.8-20.0) L 09/29/16 21:20 Urine Opiates Screen Presumptive negative 09/30/16 00:24 Urine Methadone Screen Presumptive negative 09/30/16 00:24 Acetaminophen < 15.0 ug/mL (10.0-30.0) 09/29/16 21:20 Ur Barbiturates Screen Presumptive negative 09/30/16 00:24 Ur Phencyclidine Scrn Presumptive negative 09/30/16 00:24 Ur Amphetamines Screen Presumptive negative 09/30/16 00:24 U Benzodiazepines Scrn Presumptive negative 09/30/16 00:24 Urine Cocaine Screen Presumptive negative 09/30/16 00:24 U Marijuana (THC) Screen Presumptive negative 09/30/16 00:24 Drugs of Abuse Note Disclamer 09/30/16 00:24 Plasma/Serum Alcohol < 0.01 gm% (0-0.07) 09/29/16 21:20
[2016-10-02] MEDS: REMERON PO SCH (22:28)
[2016-10-03] MEDS: NACL 0.9% 1000 ML 1,000 ML IV SCH ×2 (06:06→18:55)
[2016-10-03] MEDS: NOVOLOG SUB-Q SCH ×4 (06:59→23:00)
[2016-10-03] MEDS: ZOLOFT PO SCH (09:22)
[2016-10-03] MEDS: ASPIRIN PO SCH (09:22)
[2016-10-03] MEDS: PEPCID PO SCH (09:22)
[2016-10-03] MEDS: DECADRON PO SCH ×2 (09:23→21:14)
[2016-10-03] MEDS: LOPRESSOR PO SCH ×2 (09:23→21:14)
[2016-10-03] MEDS: LOVENOX SUB-Q SCH (09:24)
--- NOTE | 2016-10-03 18:20 | Progress Note ---
Assessment and Plan Assessment and plan: 1. Diarrhea Watery diarrhea that started after chemotherapy Low grade fever and elevated WBC on admission Stool studies ordered, but still not obtained yet Supportive care, IV fluids, electrolytes replacement as needed 2. Anemia Likely secondary to malignancy H&H stable Microcytic, so will obtain iron studies 3. Metastatic lung cancer Stage IV LLL adenocarcinoma with multiple metastasis Receiving chemotherapy and radiotherapy Also on dexamethasone 4. Hypertension BP controlled only on metoprolol 5. Diabetes Last A1C 7 Accu-Cheks and SSI 6. Depression On Fluoxetine and Remeron 7. Malnutrition Secondary to malignancy/poor intake Diet supplementation 8. Deconditioning/debility PT evaluation 9. GI/DVT prophylaxis Lovenox 10. Discharge planning issues Case management consulted for possible placement History Interval history: having less BM; stool studies obtained; no complaints except for weakness Hospitalist Physical - Constitutional Vitals: Temp Pulse Resp BP Pulse Ox 97.9 F 78 20 186/94 95 10/03/16 16:00 10/03/16 16:00 10/03/16 16:00 10/03/16 16:00 10/03/16 16:00 General appearance: Present: no acute distress - Neck Neck: Present: supple, normal ROM. Absent: masses or JVD - Respiratory Respiratory effort: normal Respiratory: bilateral: diminished, negative: rales, wheezing - Cardiovascular Rhythm: regular Heart Sounds: Present: S1 & S2. Absent: systolic murmur - Extremities Extremities: no ischemia - Abdominal General gastrointestinal: soft, non-tender, non-distended, normal bowel sounds - Psychiatric Psychiatric: cooperative - Neurologic Neurologic: CNII-XII intact, no focal deficits Results - Labs CBC & Chem 7: 10/04/16 05:28 10/01/16 06:00 Labs: Laboratory Last Values WBC 5.9 K/mm3 (4.5-11.0) 10/01/16 06:00 RBC 3.94 M/mm3 (3.65-5.03) 10/01/16 06:00 Hgb 9.5 gm/dl (11.8-15.2) L 10/01/16 06:00 Hct 29.6 % (35.5-45.6) L D 10/01/16 06:00 MCV 75 fl (84-94) L 10/01/16 06:00 MCH 24 pg (28-32) L 10/01/16 06:00 MCHC 32 % (32-34) 10/01/16 06:00 RDW 18.6 % (13.2-15.2) H 10/01/16 06:00 Plt Count 295 K/mm3 (140-440) 10/01/16 06:00 Lymph % (Auto) 15.0 % (13.4-35.0) 10/01/16 06:00 [place] % (Auto) 5.0 % (0.0-7.3) 10/01/16 06:00 Eos % (Auto) 0.1 % (0.0-4.3) 10/01/16 06:00 Baso % (Auto) 0.0 % (0.0-1.8) 10/01/16 06:00 Lymph # 0.9 K/mm3 (1.2-5.4) L 10/01/16 06:00 [place] # 0.3 K/mm3 (0.0-0.8) 10/01/16 06:00 Eos # 0.0 K/mm3 (0.0-0.4) 10/01/16 06:00 Baso # 0.0 K/mm3 (0.0-0.1) 10/01/16 06:00 Seg Neutrophils % 79.9 % (40.0-70.0) H 10/01/16 06:00 Seg Neutrophils # 4.7 K/mm3 (1.8-7.7) 10/01/16 06:00 PT 14.6 Sec. (12.2-14.9) 09/29/16 23:02 INR 1.15 (0.87-1.13) H 09/29/16 23:02 POC ABG pH 7.451 (7.35-7.45) H 09/30/16 01:12 POC ABG pCO2 28.7 (35-45) L 09/30/16 01:12 POC ABG pO2 54 (80-105) L 09/30/16 01:12 POC ABG HCO3 20.0 09/30/16 01:12 POC ABG Total CO2 21 09/30/16 01:12 POC ABG O2 Sat 90 09/30/16 01:12 POC ABG Base Excess -4 09/30/16 01:12 FiO2 21 % 09/30/16 01:12 Sodium 141 mmol/L (137-145) 10/01/16 06:00 Potassium 3.7 mmol/L (3.6-5.0) 10/01/16 06:00 Chloride 105.6 mmol/L (98-107) 10/01/16 06:00 Carbon Dioxide 24 mmol/L (22-30) 10/01/16 06:00 Anion Gap 15 mmol/L 10/01/16 06:00 BUN 9 mg/dL (9-20) 10/01/16 06:00 Creatinine 0.6 mg/dL (0.8-1.5) L 10/01/16 06:00 Estimated GFR > 60 ml/min 10/01/16 06:00 BUN/Creatinine Ratio 15.00 % 10/01/16 06:00 Glucose 190 mg/dL (75-100) H 10/01/16 06:00 POC Glucose 287 (70-105) H 10/03/16 17:22 Lactic Acid 2.0 mmol/L (0.7-2.0) 09/30/16 00:39 Calcium 6.8 mg/dL (8.4-10.2) L 10/01/16 06:00 Magnesium 2.0 mg/dL (1.7-2.3) 09/29/16 21:20 Total Bilirubin 0.6 mg/dL (0.1-1.2) 09/29/16 21:20 AST 13 units/L (5-40) 09/29/16 21:20 ALT 11 units/L (7-56) 09/29/16 21:20 Alkaline Phosphatase 68 units/L (35-129) 09/29/16 21:20 Total Creatine Kinase 79 units/L (55-170) 09/30/16 19:39 CK-MB (CK-2) 2.2 ng/mL (0.0-4.0) 09/30/16 19:39 CK-MB (CK-2) Rel Index 2.7 (0-4) 09/30/16 19:39 Troponin T 0.015 ng/mL (0.00-0.029) 09/30/16 19:39 Total Protein 6.5 g/dL (6.3-8.2) 09/29/16 21:20 Albumin 3.1 g/dL (3.9-5) L 09/29/16 21:20 Albumin/Globulin Ratio 0.9 % 09/29/16 21:20 Triglycerides 154 mg/dL (2-149) H 09/29/16 23:02 Cholesterol 200 mg/dL (50-199) H 09/29/16 23:02 LDL Cholesterol Direct 125 mg/dL (50-130) 09/29/16 23:02 HDL Cholesterol 45 mg/dL (40-59) 09/29/16 23:02 Cholesterol/HDL Ratio 4.44 % 09/29/16 23:02 TSH 7.590 mlU/mL (0.270-4.200) H 09/29/16 21:20 Free T4 0.89 ng/dL (0.76-1.46) 09/29/16 21:20 Urine Color [place] (Yellow) 09/30/16 00:24 Urine Turbidity Clear (Clear) 09/30/16 00:24 Urine pH 6.0 (5.0-7.0) 09/30/16 00:24 Ur Specific [place] 1.024 (1.003-1.030) 09/30/16 00:24 Urine Protein 30 mg/dl mg/dL (Negative) 09/30/16 00:24 Urine Glucose (UA) 50 mg/dL (Negative) 09/30/16 00:24 Urine Ketones Tr mg/dL (Negative) 09/30/16 00:24 Urine Blood Sm (Negative) 09/30/16 00:24 Urine Nitrite Neg (Negative) 09/30/16 00:24 Urine Bilirubin Neg (Negative) 09/30/16 00:24 Urine Urobilinogen < 2.0 mg/dL (<2.0) 09/30/16 00:24 Ur Leukocyte Esterase Neg (Negative) 09/30/16 00:24 Urine WBC (Auto) < 1.0 /HPF (0.0-6.0) 09/30/16 00:24 Urine RBC (Auto) 8.0 /HPF (0.0-6.0) 09/30/16 00:24 U Epithel Cells (Auto) < 1.0 /HPF (0-13.0) 09/30/16 00:24 Salicylates < 0.3 mg/dL (2.8-20.0) L 09/29/16 21:20 Urine Opiates Screen Presumptive negative 02/01/17 00:24 Urine Methadone Screen Presumptive negative 09/30/16 00:24 Acetaminophen < 15.0 ug/mL (10.0-30.0) 09/29/16 21:20 Ur Barbiturates Screen Presumptive negative 09/30/16 00:24 Ur Phencyclidine Scrn Presumptive negative 09/30/16 00:24 Ur Amphetamines Screen Presumptive negative 09/30/16 00:24 U Benzodiazepines Scrn Presumptive negative 09/30/16 00:24 Urine Cocaine Screen Presumptive negative 09/30/16 00:24 U Marijuana (THC) Screen Presumptive negative 09/30/16 00:24 Drugs of Abuse Note Disclamer 09/30/16 00:24 Plasma/Serum Alcohol < 0.01 gm% (0-0.07) 09/29/16 21:20
[2016-10-03] MEDS: REMERON PO SCH (21:14)
[2016-10-04 06:17] LABS: Hematocrit 27.9 % (35.5-45.6)
[2016-10-04 06:47] LABS: Iron 39 ug/dL (49-181); Total Iron Binding Capacity 192 mcg/dL (250-450)
[2016-10-04] MEDS: NOVOLOG SUB-Q SCH ×4 (08:47→22:50)
[2016-10-04] MEDS: ZOLOFT PO SCH (09:05)
[2016-10-04] MEDS: DECADRON PO SCH ×2 (09:05→22:15)
[2016-10-04] MEDS: ASPIRIN PO SCH (09:05)
[2016-10-04] MEDS: LOVENOX SUB-Q SCH (09:05)
[2016-10-04] MEDS: LOPRESSOR PO SCH ×2 (09:06→22:15)
[2016-10-04] MEDS: PEPCID PO SCH (09:06)
--- NOTE | 2016-10-04 16:45 | Progress Note ---
Assessment and Plan Assessment and plan: 1. Diarrhea Watery diarrhea that started after chemotherapy Low grade fever and elevated WBC on admission Stool studies (WBC, cultures, C. difficile) negative Resolved 2. Anemia Likely secondary to malignancy H&H stable Microcytic, Fe low, start supplementation 3. Metastatic lung cancer Stage IV LLL adenocarcinoma with multiple metastasis Receiving chemotherapy and radiotherapy Also on dexamethasone 4. Hypertension BP controlled only on metoprolol 5. Diabetes Last A1C 7 Accu-Cheks and SSI 6. Depression On Fluoxetine and Remeron 7. Malnutrition Secondary to malignancy/poor intake Diet supplementation 8. Deconditioning/debility PT evaluation 9. GI/DVT prophylaxis Lovenox 10. Discharge planning issues Case management consulted for possible placement History Interval history: feeling better, diarrhea almost resolved; no complaints except for weakness Hospitalist Physical - Constitutional Vitals: Temp Pulse Resp BP Pulse Ox 98 F 51 L 18 144/72 96 10/04/16 09:55 10/04/16 09:55 10/04/16 09:55 10/04/16 09:55 10/04/16 09:55 General appearance: Present: no acute distress - EENT Eyes: Present: PERRL, EOM intact - Neck Neck: Present: supple, normal ROM. Absent: masses or JVD - Respiratory Respiratory effort: normal Respiratory: bilateral: diminished, negative: rales, wheezing - Cardiovascular Rhythm: regular Heart Sounds: Present: S1 & S2. Absent: systolic murmur - Extremities Extremities: no ischemia - Abdominal General gastrointestinal: soft, non-tender, non-distended, normal bowel sounds - Psychiatric Psychiatric: cooperative - Neurologic Neurologic: CNII-XII intact, no focal deficits Results - Labs CBC & Chem 7: 10/04/16 05:28 10/01/16 06:00 Labs: Laboratory Last Values WBC 5.9 K/mm3 (4.5-11.0) 10/01/16 06:00 RBC 3.94 M/mm3 (3.65-5.03) 10/01/16 06:00 Hgb 9.0 gm/dl (11.8-15.2) L 10/04/16 05:28 Hct 27.9 % (35.5-45.6) L 10/04/16 05:28 MCV 75 fl (84-94) L 10/01/16 06:00 MCH 24 pg (28-32) L 10/01/16 06:00 MCHC 32 % (32-34) 10/01/16 06:00 RDW 18.6 % (13.2-15.2) H 10/01/16 06:00 Plt Count 295 K/mm3 (140-440) 10/01/16 06:00 Lymph % (Auto) 15.0 % (13.4-35.0) 10/01/16 06:00 [place] % (Auto) 5.0 % (0.0-7.3) 10/01/16 06:00 Eos % (Auto) 0.1 % (0.0-4.3) 10/01/16 06:00 Baso % (Auto) 0.0 % (0.0-1.8) 10/01/16 06:00 Lymph # 0.9 K/mm3 (1.2-5.4) L 10/01/16 06:00 [place] # 0.3 K/mm3 (0.0-0.8) 10/01/16 06:00 Eos # 0.0 K/mm3 (0.0-0.4) 10/01/16 06:00 Baso # 0.0 K/mm3 (0.0-0.1) 10/01/16 06:00 Seg Neutrophils % 79.9 % (40.0-70.0) H 10/01/16 06:00 Seg Neutrophils # 4.7 K/mm3 (1.8-7.7) 10/01/16 06:00 PT 14.6 Sec. (12.2-14.9) 09/29/16 23:02 INR 1.15 (0.87-1.13) H 09/29/16 23:02 POC ABG pH 7.451 (7.35-7.45) H 09/30/16 01:12 POC ABG pCO2 28.7 (35-45) L 09/30/16 01:12 POC ABG pO2 54 (80-105) L 09/30/16 01:12 POC ABG HCO3 20.0 09/30/16 01:12 POC ABG Total CO2 21 09/30/16 01:12 POC ABG O2 Sat 90 09/30/16 01:12 POC ABG Base Excess -4 09/30/16 01:12 FiO2 21 % 09/30/16 01:12 Sodium 141 mmol/L (137-145) 10/01/16 06:00 Potassium 3.7 mmol/L (3.6-5.0) 10/01/16 06:00 Chloride 105.6 mmol/L (98-107) 10/01/16 06:00 Carbon Dioxide 24 mmol/L (22-30) 10/01/16 06:00 Anion Gap 15 mmol/L 10/01/16 06:00 BUN 9 mg/dL (9-20) 10/01/16 06:00 Creatinine 0.6 mg/dL (0.8-1.5) L 10/01/16 06:00 Estimated GFR > 60 ml/min 10/01/16 06:00 BUN/Creatinine Ratio 15.00 % 10/01/16 06:00 Glucose 190 mg/dL (75-100) H 10/01/16 06:00 POC Glucose 208 (70-105) H 10/04/16 06:37 Lactic Acid 2.0 mmol/L (0.7-2.0) 09/30/16 00:39 Calcium 6.8 mg/dL (8.4-10.2) L 10/01/16 06:00 Magnesium 2.0 mg/dL (1.7-2.3) 09/29/16 21:20 Iron 39 ug/dL (49-181) L 10/04/16 05:28 TIBC 192 mcg/dL (250-450) L 10/04/16 05:28 Total Bilirubin 0.6 mg/dL (0.1-1.2) 09/29/16 21:20 AST 13 units/L (5-40) 09/29/16 21:20 ALT 11 units/L (7-56) 09/29/16 21:20 Alkaline Phosphatase 68 units/L (35-129) 09/29/16 21:20 Total Creatine Kinase 79 units/L (55-170) 09/30/16 19:39 CK-MB (CK-2) 2.2 ng/mL (0.0-4.0) 09/30/16 19:39 CK-MB (CK-2) Rel Index 2.7 (0-4) 09/30/16 19:39 Troponin T 0.015 ng/mL (0.00-0.029) 09/30/16 19:39 Total Protein 6.5 g/dL (6.3-8.2) 09/29/16 21:20 Albumin 3.1 g/dL (3.9-5) L 09/29/16 21:20 Albumin/Globulin Ratio 0.9 % 09/29/16 21:20 Triglycerides 154 mg/dL (2-149) H 09/29/16 23:02 Cholesterol 200 mg/dL (50-199) H 09/29/16 23:02 LDL Cholesterol Direct 125 mg/dL (50-130) 09/29/16 23:02 HDL Cholesterol 45 mg/dL (40-59) 09/29/16 23:02 Cholesterol/HDL Ratio 4.44 % 09/29/16 23:02 TSH 7.590 mlU/mL (0.270-4.200) H 09/29/16 21:20 Free T4 0.89 ng/dL (0.76-1.46) 09/29/16 21:20 Urine Color [place] (Yellow) 09/30/16 00:24 Urine Turbidity Clear (Clear) 09/30/16 00:24 Urine pH 6.0 (5.0-7.0) 09/30/16 00:24 Ur Specific [place] 1.024 (1.003-1.030) 09/30/16 00:24 Urine Protein 30 mg/dl mg/dL (Negative) 09/30/16 00:24 Urine Glucose (UA) 50 mg/dL (Negative) 09/30/16 00:24 Urine Ketones Tr mg/dL (Negative) 09/30/16 00:24 Urine Blood Sm (Negative) 09/30/16 00:24 Urine Nitrite Neg (Negative) 09/30/16 00:24 Urine Bilirubin Neg (Negative) 09/30/16 00:24 Urine Urobilinogen < 2.0 mg/dL (<2.0) 09/30/16 00:24 Ur Leukocyte Esterase Neg (Negative) 09/30/16 00:24 Urine WBC (Auto) < 1.0 /HPF (0.0-6.0) 09/30/16 00:24 Urine RBC (Auto) 8.0 /HPF (0.0-6.0) 09/30/16 00:24 U Epithel Cells (Auto) < 1.0 /HPF (0-13.0) 09/30/16 00:24 Salicylates < 0.3 mg/dL (2.8-20.0) L 09/29/16 21:20 Urine Opiates Screen Presumptive negative 09/30/16 00:24 Urine Methadone Screen Presumptive negative 09/30/16 00:24 Acetaminophen < 15.0 ug/mL (10.0-30.0) 09/29/16 21:20 Ur Barbiturates Screen Presumptive negative 09/30/16 00:24 Ur Phencyclidine Scrn Presumptive negative 09/30/16 00:24 Ur Amphetamines Screen Presumptive negative 09/30/16 00:24 U Benzodiazepines Scrn Presumptive negative 09/30/16 00:24 Urine Cocaine Screen Presumptive negative 09/30/16 00:24 U Marijuana (THC) Screen Presumptive negative 09/30/16 00:24 Drugs of Abuse Note Disclamer 09/30/16 00:24 Plasma/Serum Alcohol < 0.01 gm% (0-0.07) 09/29/16 21:20
[2016-10-04] MEDS: NACL 0.9% 1000 ML 1,000 ML IV SCH (17:21)
[2016-10-04] MEDS: REMERON PO SCH (22:15)
[2016-10-05] MEDS: NOVOLOG SUB-Q SCH ×3 (08:23→18:00)
[2016-10-05] MEDS: LOPRESSOR PO SCH (09:45)
[2016-10-05] MEDS: ZOLOFT PO SCH (09:46)
[2016-10-05] MEDS: LOVENOX SUB-Q SCH (09:46)
[2016-10-05] MEDS: DECADRON PO SCH (09:46)
[2016-10-05] MEDS: ASPIRIN PO SCH (09:46)
[2016-10-05] MEDS: PEPCID PO SCH (09:46)
--- NOTE | 2016-10-05 10:57 | Discharge Summary ---
Providers - Providers Date of Admission: 09/30/16 03:38 Date of discharge: 10/05/16 Attending physician: SUMAN SALAMANCA 09/30/16 13:43 Physical Therapy Evaluation and Treat [CONS] Routine Comment: Reason For Exam: ftt Primary care physician: ABEL LAY Hospitalization Reason for admission: watery diarrhea Condition: Stable Pertinent studies: Chest x-ray Echocardiogram Hospital course: Patient is a 65 years old male with metastatic lung cancer receiving chemotherapy/radiotherapy who presents to the hospital complaining of watery diarrhea that started after chemotherapy; his diarrhea continued for a few days , associated low-grade temp and severe generalized weakness may him to come to the hospital. All stool studies including stool WBC, cultures and C. difficile were negative. He received supportive care. Evaluated by PT. manager concrete was consulted for placement, but his insurance denied it. He is discharged home with home health and will follow regularly with his oncologist to continue treatment as planned. Discharge diagnosis: Noninfectious diarrhea Metastatic lung cancer Iron deficient anemia Malnutrition Deconditioning/debility Hypertension Diabetes Depression Disposition: DC/TX HOME UNDER HOME HEALTH Time spent for discharge: 35 minutes Core Measure Documentation - Palliative Care Palliative Care/ Comfort Measures: Not Applicable - Core Measures Any of the following diagnoses?: none Exam - Physical Exam Narrative exam: Patient seen and examined: - Constitutional Vitals: Temp Pulse Resp BP Pulse Ox 98.0 F 92 H 20 160/88 96 10/05/16 08:13 10/05/16 09:45 10/05/16 08:13 10/05/16 09:45 10/05/16 08:13 General appearance: Present: no acute distress - EENT Eyes: Present: PERRL, EOM intact. Absent: scleral icterus, conjunctival injection - Neck Neck: Present: supple, normal ROM. Absent: masses or JVD - Respiratory Respiratory effort: normal Respiratory: bilateral: diminished, negative: rales, wheezing - Cardiovascular Rhythm: regular Heart Sounds: Present: S1 & S2. Absent: systolic murmur - Extremities Extremities: no ischemia - Abdominal General gastrointestinal: Present: soft, non-tender, non-distended, normal bowel sounds - Musculoskeletal Musculoskeletal: generalized weakness - Psychiatric Psychiatric: cooperative - Neurologic Neurologic: CNII-XII intact, no focal deficits Plan Activity: advance as tolerated, fall precautions Diet: low cholesterol, low salt, diabetic Additional Instructions: Follow-up with your oncologist to continue treatment as planned Follow up with: ABEL LAY MD [Primary Care Provider] - 3-5 Days Prescriptions: Mirtazapine [Remeron] 15 mg PO QHS #30 tablet Aspirin [Aspirin TAB] 325 mg PO QDAY #30 tablet Dexamethasone [Decadron] 4 mg PO Q12HR #20 tablet Famotidine [Pepcid] 20 mg PO DAILY #60 tablet Ferrous Sulfate [Feosol 325 MG tab] 325 mg PO BID #60 tablet Metoprolol [Lopressor TAB] 50 mg PO BID #60 tablet oxyCODONE /ACETAMINOPHEN [Percocet 5/325 mg] 1 tab PO Q6H PRN #8 tablet PRN Reason: Pain, Moderate (4-6) Sertraline [Zoloft] 25 mg PO QDAY #30 tablet
[2016-10-05] MEDS ORDERED: FEOSOL PO SCH (11:00)
[2016-10-05 18:15] VITALS: BP 169/81
== END 2016-10-05 19:10 | disposition home health service (06) | DRG 394 ==
LOC: ED 19:17 → 3A 09-30 03:38
PROVIDERS: ADMIT Internal Medicine; ATTEND Internal Medicine
PROC: 4A033R1 Measurement of Arterial Saturation, Peripheral, Percutaneous Approach (ICD-10-PCS; principal; 2016-09-30)
DX: K52.1 Toxic gastroenteritis and colitis (principal); C34.90 Malignant neoplasm of unspecified part of unspecified bronchus or lung; E44.0 Moderate protein-calorie malnutrition; E11.9 Type 2 diabetes mellitus without complications; D50.0 Iron deficiency anemia secondary to blood loss (chronic); I10 Essential (primary) hypertension; M25.562 Pain in left knee; T45.1X5A Adverse effect of antineoplastic and immunosuppressive drugs, initial encounter; M25.461 Effusion, right knee; F32.9 Major depressive disorder, single episode, unspecified; K21.9 Gastro-esophageal reflux disease without esophagitis; Z82.49 Family history of ischemic heart disease and other diseases of the circulatory system; Z68.30 Body mass index [BMI] 30.0-30.9, adult; D63.0 Anemia in neoplastic disease
CPT/HCPCS: 36415; 71010; 80048; 80053; 80061; 80307; 80320; 81001; 82140; 82550; 82553; 82803; 82962; 83550; 83735; 84439; 84443; 84484; 85007; 85014; 85018; 85025; 85610; 87040; 87045; 87493; 93005; 93010; 93306; 94760; 96360; G0480; J1650; J1815; J7030; J8540

== ENCOUNTER 2016-10-23 20:30 | Inpatient (IN) | payer BC ==
[2016-10-23 21:40] LABS: Basophils % (Auto) 0.1 % (0.0-1.8); Eosinophils % (Auto) 0.6 % (0.0-4.3); Hematocrit 40.1 % (35.5-45.6); Hemoglobin 12.6 gm/dl (11.8-15.2); Mean Corpuscular HGB Conc 31 % (32-34); Mean Corpuscular Volume 77 fl (84-94); Platelet Count 279 K/mm3 (140-440); Red Blood Count 5.18 M/mm3 (3.65-5.03); White Blood Count 12.1 K/mm3 (4.5-11.0)
[2016-10-23 21:41] LABS: Mean Corpuscular Hemoglobin 24 pg (28-32); Red Cell Distribution Width 20.7 % (13.2-15.2)
[2016-10-23 22:01] LABS: Alanine Aminotransferase 23 units/L (7-56); Albumin 2.9 g/dL (3.9-5); Albumin/Globulin Ratio 0.9 %; Alkaline Phosphatase 64 units/L (35-129); Anion Gap 21 mmol/L; BUN/Creatinine Ratio 28.75; Bilirubin,Total 0.8 mg/dL (0.1-1.2); Blood Urea Nitrogen 23 mg/dL (9-20); Calcium 8.2 mg/dL (8.4-10.2); Carbon Dioxide 24 mmol/L (22-30); Chloride 99.9 mmol/L (98-107); Glucose 284 mg/dL (75-100); Sodium 141 mmol/L (137-145)
[2016-10-23 23:37] LABS: Bilirubin,Urine NEG (Negative); Blood,Urine MOD (Negative); Ketones,Urine NEG (Negative); Leukocyte Esterase,Urine NEG (Negative); Mucus,Urine FEW /HPF; Nitrite,Urine NEG (Negative); Protein,Urine <15 mg/dL mg/dL (Negative); Urobilinogen,Urine < 2.0 mg/dL (<2.0)
--- NOTE | 2016-10-24 00:15 | Emergency Department Report ---
- General Chief complaint: Medical Clearance Stated complaint: UNABLE TO WALK,FAILURE TO THRIVE Time Seen by Provider: 10/23/16 21:48 Source: EMS Mode of arrival: Stretcher Limitations: No Limitations - History of Present Illness Initial comments: 65-year-old male with a past medical history of GERD, hypertension, and metastatic lung cancer presents to the hospital complaining of leg weakness. Patient states he has not been able to get out of bed to walk for 2 weeks. Patient states prior to that he was intubated with a cane. Patient lives with a family member who helps to take care of him. Patient was found in bed covered in urine and feces. He denies any pain. Sensation intact. Severity scale (0 -10): 5 - Related Data Previous Rx's Medication Instructions Recorded Last Taken Type Aspirin [Aspirin TAB] 325 mg PO QDAY #30 tablet 10/05/16 Unknown Rx Dexamethasone [Decadron] 4 mg PO Q12HR #20 tablet 10/05/16 Unknown Rx Famotidine [Pepcid] 20 mg PO DAILY #60 tablet 10/05/16 Unknown Rx Ferrous Sulfate [Feosol 325 MG tab] 325 mg PO BID #60 tablet 10/05/16 Unknown Rx Metoprolol [Lopressor TAB] 50 mg PO BID #60 tablet 10/05/16 Unknown Rx Mirtazapine [Remeron] 15 mg PO QHS #30 tablet 10/05/16 Unknown Rx Sertraline [Zoloft] 25 mg PO QDAY #30 tablet 10/05/16 Unknown Rx oxyCODONE /ACETAMINOPHEN [Percocet 1 tab PO Q6H PRN #8 tablet 10/05/16 Unknown Rx 5/325 mg] Allergies Allergy/AdvReac Type Severity Reaction Status Date / Time No Known Allergies Allergy Unverified 10/23/16 20:41 ED Review of Systems ROS: Stated complaint: UNABLE TO WALK,FAILURE TO THRIVE Other details as noted in HPI Comment: All other systems reviewed and negative Other: Constitutional: No fevers chills Eyes: No eye pain visual changes ENT: No ear pain or throat pain Neck: Denies pain Respiratory: Denies cough wheezing shortness of breath Cardiovascular: Denies chest pain, palpitations, syncope GI: Denies abdominal pain, nausea, vomiting, diarrhea : Denies dysuria Musculoskeletal: no back pain Skin: Denies rash, lesions, erythema Neurologic: Denies headache Psychiatric: Denies suicidal ideation, hallucinations ED Past Medical Hx - Past Medical History Hx Hypertension: Yes Hx Congestive Heart Failure: No Hx Diabetes: Yes (oral medication) Hx GERD: Yes Hx Arthritis: Yes Hx Asthma: No Hx COPD: No Hx HIV: No Additional medical history: lung cancer - Surgical History Additional Surgical History: unknown - Social History Smoking Status: Never Smoker Substance Use Type: None - Medications Home Medications: Home Medications Medication Instructions Recorded Confirmed Last Taken Type Aspirin [Aspirin TAB] 325 mg PO QDAY #30 tablet 10/05/16 Unknown Rx Dexamethasone [Decadron] 4 mg PO Q12HR #20 tablet 10/05/16 Unknown Rx Famotidine [Pepcid] 20 mg PO DAILY #60 tablet 10/05/16 Unknown Rx Ferrous Sulfate [Feosol 325 MG tab] 325 mg PO BID #60 tablet 10/05/16 Unknown Rx Metoprolol [Lopressor TAB] 50 mg PO BID #60 tablet 10/05/16 Unknown Rx Mirtazapine [Remeron] 15 mg PO QHS #30 tablet 10/05/16 Unknown Rx Sertraline [Zoloft] 25 mg PO QDAY #30 tablet 10/05/16 Unknown Rx oxyCODONE /ACETAMINOPHEN [Percocet 1 tab PO Q6H PRN #8 tablet 10/05/16 Unknown Rx 5/325 mg] ED Physical Exam - General Limitations: No Limitations - Other Other exam information: General: No limitations, patient is alert in no acute distress Head exam: Atraumatic, normocephalic Eyes exam: Normal appearance, pupils equal reactive to light, extraocular movements intact ENT: Moist mucous membrane, normal oropharynx Neck exam: Normal inspection, full range of motion, no meningismus nontender Respiratory exam: Clear to auscultation bilateral, no wheezes, rales, crackles Cardiovascular: Normal rate and rhythm, normal heart sounds Abdomen: Soft, nondistended, and nontender, with normal bowel sounds, no rebound, or guarding Extremity: Bilateral lower extremity pitting edema. Nontender Back: Normal Inspection, full range of motion, no tenderness Neurologic: Alert, oriented x3, cranial nerves intact, lower extremity sensation intact. Equal foot dorsiflexion. Unable to lift either leg off the bed Psychiatric: normal affect, normal mood Skin: Warm, dry, intact ED Course Vital Signs 10/23/16 10/23/16 10/24/16 21:25 22:48 03:38 Temperature 99.2 F Pulse Rate 92 H 98 H Respiratory 16 18 14 Rate Blood Pressure 151/96 126/83 [Left] O2 Sat by Pulse 97 97 Oximetry - Reevaluation(s) Reevaluation #1: 10/24/16 00:20 Patient remained stable in the ED ED Medical Decision Making - Lab Data Result diagrams: 10/23/16 21:20 10/23/16 21:20 Procedures DRAINAGE OF L PLEURAL CAV WITH DRAIN DEV, PERC APPROACH (03/12/16) MEASURE OF ARTERIAL SATURATION, PERIPHERAL, PERC APPROACH (09/30/16) Lab Results 10/23/16 10/23/16 10/23/16 Range/Units 21:20 21:20 Unknown WBC 12.1 H (4.5-11.0) K/mm3 RBC 5.18 H (3.65-5.03) M/mm3 Hgb 12.6 (11.8-15.2) gm/dl Hct 40.1 (35.5-45.6) % MCV 77 L (84-94) fl MCH 24 L (28-32) pg MCHC 31 L (32-34) % RDW 20.7 H (13.2-15.2) % Plt Count 279 (140-440) K/mm3 Lymph % (Auto) 8.2 L (13.4-35.0) % [place] % (Auto) 6.6 (0.0-7.3) % Eos % (Auto) 0.6 (0.0-4.3) % Baso % (Auto) 0.1 (0.0-1.8) % Lymph # 1.0 L (1.2-5.4) K/mm3 [place] # 0.8 (0.0-0.8) K/mm3 Eos # 0.1 (0.0-0.4) K/mm3 Baso # 0.0 (0.0-0.1) K/mm3 Seg Neutrophils % 84.5 H (40.0-70.0) % Seg Neutrophils # 10.3 H (1.8-7.7) K/mm3 Sodium 141 (137-145) mmol/L Potassium 4.0 (3.6-5.0) mmol/L Chloride 99.9 (98-107) mmol/L Carbon Dioxide 24 (22-30) mmol/L Anion Gap 21 mmol/L BUN 23 H (9-20) mg/dL Creatinine 0.8 (0.8-1.5) mg/dL Estimated GFR > 60 ml/min BUN/Creatinine Ratio 28.75 % Glucose 284 H (75-100) mg/dL Calcium 8.2 L (8.4-10.2) mg/dL Total Bilirubin 0.8 (0.1-1.2) mg/dL AST 21 (5-40) units/L ALT 23 (7-56) units/L Alkaline Phosphatase 64 (35-129) units/L Total Protein 6.0 L (6.3-8.2) g/dL Albumin 2.9 L (3.9-5) g/dL Albumin/Globulin Ratio 0.9 % Urine Color Yellow (Yellow) Urine Turbidity Clear (Clear) Urine pH 6.0 (5.0-7.0) Ur Specific [place] 1.026 (1.003-1.030) Urine Protein <15 mg/dl (Negative) mg/dL Urine Glucose (UA) >=500 (Negative) mg/dL Urine Ketones Neg (Negative) mg/dL Urine Blood Mod (Negative) Urine Nitrite Neg (Negative) Urine Bilirubin Neg (Negative) Urine Urobilinogen < 2.0 (<2.0) mg/dL Ur Leukocyte Esterase Neg (Negative) Urine WBC (Auto) 3.0 (0.0-6.0) /HPF Urine RBC (Auto) 25.0 (0.0-6.0) /HPF U Epithel Cells (Auto) < 1.0 (0-13.0) /HPF Urine Mucus Few /HPF - Radiology Data Radiology results: image reviewed ( lumbar x-ray: No acute finding) - Medical Decision Making Plan to admit patient to hospital since he cannot walk. He was medical record reviewed. Patient presented in May with inability to ambulate due to a septic arthritis/metastatic lesion, and presented here in September 29 unable to walk and was diagnosed with diarrhea. I admitted patient in August he had a similar exam. Patient has been unable to walk the last 2 weeks. Patient will be admitted to the hospital for further workup and evaluation and will possibly need shelter placement - Differential Diagnosis metastatic lesion, cord compression, UTI, infection, cancer Critical Care Time: No Critical care attestation.: If time is entered above; I have spent that time in minutes in the direct care of this critically ill patient, excluding procedure time. ED Disposition Clinical Impression: Weakness, Metastatic lung carcinoma, Bilateral leg weakness, Diabetes Disposition: OP ADMITTED IP TO THIS HOSP Is pt being admited?: Yes Condition: Stable Time of Disposition: 00:22 (Dr Martinez/hosp)
[2016-10-24] MEDS ORDERED: TYLENOL PO PRN (01:20)
[2016-10-24] MEDS ORDERED: DULCOLAX PR PRN (01:20)
[2016-10-24] MEDS ORDERED: MILK OF MAGNESIA PO PRN (01:20)
[2016-10-24] MEDS ORDERED: ZOFRAN IV PRN (01:20)
[2016-10-24] MEDS ORDERED: PERCOCET 5/325 PO PRN (01:20)
--- NOTE | 2016-10-24 06:46 | History and Physical Report ---
History of Present Illness Date of examination: 10/24/16 Date of admission: 10/24/16 01:20 History of present illness: 65-year-old man with a history of metastatic lung cancer, hypertension, diabetes , GERD comes emergency room with complaints of not able to care for himself. Patient was discharged from rehabilitation, he had a services set up at home for about 2 weeks. Once his services, physical therapy, home health aide, visiting nurse were discontinued he had difficulty doing his ADLs. He states she got weaker, was unable to get out of bed. He has to urge to urinate and defecate but is unable to get out of bed to the bathroom so he he urinated and defecated in the bed. His roommate who lives with him stated that he did not and needed to go to the hospital for evaluation. Patient was covered in feces and urine and had to be scrubbed down in the emergency room. He has not walked in 3 days, he told the emergency room physician that he has not taking 2 weeks Patient denies chest pain, palpitation, shortness of breath, cough, abdominal pain, hematochezia, dysuria, frequency, focal weakness, dysarthria, fever chills , polydipsia polyuria, hot or cold intolerance, easy bruisability, or rash or bleeding from mucosal membrane, rhinorrhea, epistaxis, earache, tinnitus, blurry vision, eye discharge, anxiety, depression. Other review of systems negative PAST SURGICAL HISTORY: None SOCIAL HISTORY: Denies alcohol, tobacco, drugs FAMILY HISTORY: Hypertension Medications and Allergies Allergies Allergy/AdvReac Type Severity Reaction Status Date / Time No Known Allergies Allergy Unverified 10/23/16 20:41 Home Medications Medication Instructions Recorded Confirmed Last Taken Type Aspirin [Aspirin TAB] 325 mg PO QDAY #30 tablet 10/05/16 Unknown Rx Dexamethasone [Decadron] 4 mg PO Q12HR #20 tablet 10/05/16 Unknown Rx Famotidine [Pepcid] 20 mg PO DAILY #60 tablet 10/05/16 Unknown Rx Ferrous Sulfate [Feosol 325 MG tab] 325 mg PO BID #60 tablet 10/05/16 Unknown Rx Metoprolol [Lopressor TAB] 50 mg PO BID #60 tablet 10/05/16 Unknown Rx Mirtazapine [Remeron] 15 mg PO QHS #30 tablet 10/05/16 Unknown Rx Sertraline [Zoloft] 25 mg PO QDAY #30 tablet 10/05/16 Unknown Rx oxyCODONE /ACETAMINOPHEN [Percocet 1 tab PO Q6H PRN #8 tablet 10/05/16 Unknown Rx 5/325 mg] Active Meds: Active Medications Acetaminophen (Tylenol) 650 mg PO Q4H PRN PRN Reason: Pain MILD(1-3)/Fever >100.5/COYLE Aspirin (Aspirin) 325 mg PO QDAY [facility] Bisacodyl (Dulcolax) 10 mg [place] QDAY PRN PRN Reason: Constipation unrelieved by MOM Dexamethasone (Decadron) 4 mg PO Q12HR [facility] Enoxaparin Sodium (Lovenox) 40 mg SUB-Q QDAY [facility] Famotidine (Pepcid) 20 mg PO DAILY [facility] Ferrous Sulfate (Feosol) 325 mg PO BID [facility] Magnesium Hydroxide (Milk Of Magnesia) 30 ml PO Q4H PRN PRN Reason: Constipation Metoprolol Tartrate (Lopressor) 50 mg PO BID [facility] Mirtazapine (Remeron) 15 mg PO QHS [facility] Ondansetron HCl (Zofran) 4 mg IV Q8H PRN PRN Reason: N/V unrelieved by Reglan Oxycodone/Acetaminophen (Percocet 5/325) 1 tab PO Q6H PRN PRN Reason: Pain, Moderate (4-6) Oxycodone/Acetaminophen (Percocet 5/325) 1 tab PO Q6H PRN PRN Reason: Pain, Moderate (4-6) Sertraline HCl (Zoloft) 25 mg PO QDAY [facility] Exam - Physical Exam Narrative exam: Gen. appearance: Patient lying in bed, no apparent distress HEENT: Normocephalic, atraumatic, pupils equally round and reactive to light, extraocular movement intact, and no sclericterus,. No JVD or thyromegaly or nodule,neck supple, no carotid bruit ,mucous membranes moist, no exudate or erythema Heart: S1, S2, regular rate and rhythm Lungs: Clear to auscultation bilaterally, breathing comfortable Abdomen: Positive bowel sounds, nontender, nondistended, no organomegaly Extremity: No edema, cyanosis, clubbing Skin: No rash, nodules, warm, dry Neuro: Oriented 3, cranial nerves II-12 intact, speech is fluent, motor and sensory intact - Constitutional Vitals: Temp Pulse Resp BP Pulse Ox 97.9 F 80 20 181/93 97 10/24/16 06:11 10/24/16 06:11 10/24/16 06:11 10/24/16 06:11 10/24/16 06:11 Results - Labs CBC & Chem 7: 10/23/16 21:20 10/23/16 21:20 Assessment and Plan X-ray of the lumbar spine, follow official report Failure to thrive Hypertension Diabetes Metastatic lung cancer GERD Admits medicine Consult physical therapy, case management for placement Discussed with patient [facility] placement Check fingersticks initiate insulin sliding scale Start DVT prophylaxis Continue outpatient medications
--- NOTE | 2016-10-24 10:21 | XRay Report ---
LUMBOSACRAL SPINE, 3 VIEWS History: Bilateral leg weakness, cancer. Findings: Mild osteopenia is suspected. There are mild to moderate degenerative changes at L4-5 and L5-S1. The remaining levels are within normal limits. Bilateral chronic appearing L5 pars defects are identified. No acute fracture, malalignment or bony lesion is appreciated. No overwhelming change since the CT abdomen and pelvis dated 03/14/16. Impression: Osteopenia. Lumbar spondylosis. No acute process appreciated.
[2016-10-24] MEDS: FEOSOL PO SCH ×2 (11:11→23:03)
[2016-10-24] MEDS: ASPIRIN PO SCH (11:11)
[2016-10-24] MEDS: DECADRON PO SCH ×2 (11:11→23:03)
[2016-10-24] MEDS: PEPCID PO SCH (11:11)
[2016-10-24] MEDS: LOPRESSOR PO SCH ×2 (11:12→23:02)
[2016-10-24] MEDS: LOVENOX SUB-Q SCH (11:12)
[2016-10-24] MEDS: ZOLOFT PO SCH (18:16)
[2016-10-24] MEDS: REMERON PO SCH (23:03)
[2016-10-25 05:13] LABS: Anion Gap 17 mmol/L; Blood Urea Nitrogen 19 mg/dL (9-20); Calcium 8.1 mg/dL (8.4-10.2); Carbon Dioxide 25 mmol/L (22-30); Chloride 99.8 mmol/L (98-107); Glucose 268 mg/dL (75-100); Potassium 4.4 mmol/L (3.6-5.0); Sodium 137 mmol/L (137-145)
[2016-10-25 05:15] LABS: Basophils % (Auto) 0.1 % (0.0-1.8); Eosinophils % (Auto) 1.5 % (0.0-4.3); Hematocrit 33.9 % (35.5-45.6); Hemoglobin 10.7 gm/dl (11.8-15.2); Mean Corpuscular HGB Conc 32 % (32-34); Mean Corpuscular Volume 77 fl (84-94); Platelet Count 245 K/mm3 (140-440); Red Blood Count 4.39 M/mm3 (3.65-5.03); Red Cell Distribution Width 19.8 % (13.2-15.2); White Blood Count 7.8 K/mm3 (4.5-11.0)
[2016-10-25 05:24] LABS: Mean Corpuscular Hemoglobin 24 pg (28-32)
[2016-10-25] MEDS: ASPIRIN PO SCH (10:26)
[2016-10-25] MEDS: FEOSOL PO SCH ×2 (10:26→21:27)
[2016-10-25] MEDS: LOPRESSOR PO SCH ×2 (10:27→21:28)
[2016-10-25] MEDS: DECADRON PO SCH ×2 (10:27→21:27)
[2016-10-25] MEDS: PEPCID PO SCH (10:27)
[2016-10-25] MEDS: LOVENOX SUB-Q SCH (10:28)
[2016-10-25] MEDS: ZOLOFT PO SCH (10:28)
[2016-10-25] MEDS ORDERED: D50W (25GM) IV PRN (13:34)
[2016-10-25] MEDS: PERCOCET 5/325 PO PRN (17:35)
[2016-10-25] MEDS: NOVOLOG SUB-Q SCH ×2 (17:42→22:15)
[2016-10-25] MEDS: REMERON PO SCH (21:27)
[2016-10-26] MEDS: PERCOCET 5/325 PO PRN ×2 (08:57→14:32)
[2016-10-26] MEDS: ASPIRIN PO SCH (09:00)
[2016-10-26] MEDS: ZOLOFT PO SCH (09:00)
[2016-10-26] MEDS: LOVENOX SUB-Q SCH (09:00)
[2016-10-26] MEDS: LOPRESSOR PO SCH ×2 (09:00→22:11)
[2016-10-26] MEDS: PEPCID PO SCH (09:00)
[2016-10-26] MEDS: FEOSOL PO SCH ×2 (09:00→22:11)
[2016-10-26] MEDS: DECADRON PO SCH ×2 (09:00→22:12)
[2016-10-26] MEDS: NOVOLOG SUB-Q SCH ×4 (09:30→22:23)
[2016-10-26] MEDS: REMERON PO SCH (22:12)
--- NOTE | 2016-10-27 00:47 | Progress Note ---
Assessment and Plan Assessment and plan: 65-year-old man with a history of metastatic lung cancer, hypertension, diabetes , GERD comes emergency room with complaints of not able to care for himself. Patient was discharged from rehabilitation, he had a services set up at home for about 2 weeks. Due to inability to get out of bed without assistance he has urinated and defecated in hi sbed, and has some bread down of skin around the scrotum and sacrum 1. FTT continue supportive care 2. Debility PT eval, will need placement vs home with home hospice 3. HTN continue current meds 4. DM inititate SSI 5. Metastatic lung ca on palliative chemo -outpatient oncology fup 6. Scrotal and sacral skin breakdown due to moisture (urination and defection on self) -place condom vs wells cather, continue wound care Hospitalist Physical - Physical exam Narrative exam: Gen. appearance: Patient lying in bed, no apparent distress HEENT: Normocephalic, atraumatic, pupils equally round and reactive to light, extraocular movement intact, and no sclericterus,. No JVD or thyromegaly or nodule,neck supple, no carotid bruit ,mucous membranes moist, no exudate or erythema Heart: S1, S2, regular rate and rhythm Lungs: Clear to auscultation bilaterally, breathing comfortable Abdomen: Positive bowel sounds, nontender, nondistended, no organomegaly Extremity: 1+ bipedal edema Skin: skin break down around scrotum and sacrum Neuro: Oriented 3, cranial nerves II-12 intact, speech is fluent, motor and sensory intact, generalized weakness - Constitutional Vitals: Temp Pulse Resp BP Pulse Ox 98.4 F 98 H 24 145/75 96 10/26/16 20:40 10/26/16 22:11 10/26/16 20:40 10/26/16 22:11 10/26/16 20:40 Results - Labs CBC & Chem 7: 10/25/16 04:30 10/25/16 04:30 Labs: Laboratory Last Values WBC 7.8 K/mm3 (4.5-11.0) 10/25/16 04:30 RBC 4.39 M/mm3 (3.65-5.03) 10/25/16 04:30 Hgb 10.7 gm/dl (11.8-15.2) L 10/25/16 04:30 Hct 33.9 % (35.5-45.6) L D 10/25/16 04:30 MCV 77 fl (84-94) L 10/25/16 04:30 MCH 24 pg (28-32) L 10/25/16 04:30 MCHC 32 % (32-34) 10/25/16 04:30 RDW 19.8 % (13.2-15.2) H 10/25/16 04:30 Plt Count 245 K/mm3 (140-440) 10/25/16 04:30 Lymph % (Auto) 12.6 % (13.4-35.0) L 10/25/16 04:30 [place] % (Auto) 4.5 % (0.0-7.3) 10/25/16 04:30 Eos % (Auto) 1.5 % (0.0-4.3) 10/25/16 04:30 Baso % (Auto) 0.1 % (0.0-1.8) 10/25/16 04:30 Lymph # 1.0 K/mm3 (1.2-5.4) L 10/25/16 04:30 [place] # 0.3 K/mm3 (0.0-0.8) 10/25/16 04:30 Eos # 0.1 K/mm3 (0.0-0.4) 10/25/16 04:30 Baso # 0.0 K/mm3 (0.0-0.1) 10/25/16 04:30 Seg Neutrophils % 81.3 % (40.0-70.0) H 10/25/16 04:30 Seg Neutrophils # 6.3 K/mm3 (1.8-7.7) 10/25/16 04:30 Sodium 137 mmol/L (137-145) 10/25/16 04:30 Potassium 4.4 mmol/L (3.6-5.0) 10/25/16 04:30 Chloride 99.8 mmol/L (98-107) 10/25/16 04:30 Carbon Dioxide 25 mmol/L (22-30) 10/25/16 04:30 Anion Gap 17 mmol/L 10/25/16 04:30 BUN 19 mg/dL (9-20) 10/25/16 04:30 Creatinine 0.5 mg/dL (0.8-1.5) L 10/25/16 04:30 Estimated GFR > 60 ml/min 10/25/16 04:30 BUN/Creatinine Ratio 38.00 % 10/25/16 04:30 Glucose 268 mg/dL (75-100) H 10/25/16 04:30 POC Glucose 286 (70-105) H 10/26/16 22:08 Calcium 8.1 mg/dL (8.4-10.2) L 10/25/16 04:30 Total Bilirubin 0.8 mg/dL (0.1-1.2) 10/23/16 21:20 AST 21 units/L (5-40) 10/23/16 21:20 ALT 23 units/L (7-56) 10/23/16 21:20 Alkaline Phosphatase 64 units/L (35-129) 10/23/16 21:20 Total Protein 6.0 g/dL (6.3-8.2) L 10/23/16 21:20 Albumin 2.9 g/dL (3.9-5) L 10/23/16 21:20 Albumin/Globulin Ratio 0.9 % 10/23/16 21:20 Urine Color Yellow (Yellow) 10/23/16 Unknown Urine Turbidity Clear (Clear) 10/23/16 Unknown Urine pH 6.0 (5.0-7.0) 10/23/16 Unknown Ur Specific [place] 1.026 (1.003-1.030) 10/23/16 Unknown Urine Protein <15 mg/dl mg/dL (Negative) 10/23/16 Unknown Urine Glucose (UA) >=500 mg/dL (Negative) 10/23/16 Unknown Urine Ketones Neg mg/dL (Negative) 10/23/16 Unknown Urine Blood Mod (Negative) 10/23/16 Unknown Urine Nitrite Neg (Negative) 10/23/16 Unknown Urine Bilirubin Neg (Negative) 10/23/16 Unknown Urine Urobilinogen < 2.0 mg/dL (<2.0) 10/23/16 Unknown Ur Leukocyte Esterase Neg (Negative) 10/23/16 Unknown Urine WBC (Auto) 3.0 /HPF (0.0-6.0) 10/23/16 Unknown Urine RBC (Auto) 25.0 /HPF (0.0-6.0) 10/23/16 Unknown U Epithel Cells (Auto) < 1.0 /HPF (0-13.0) 10/23/16 Unknown Urine Mucus Few /HPF 10/23/16 Unknown
--- NOTE | 2016-10-27 00:55 | Progress Note ---
Assessment and Plan Assessment and plan: 65-year-old man with a history of metastatic lung cancer, hypertension, diabetes , GERD comes emergency room with complaints of not able to care for himself. Patient was discharged from rehabilitation, he had a services set up at home for about 2 weeks. Due to inability to get out of bed without assistance he has urinated and defecated in hi sbed, and has some break down of skin around the scrotum and sacrum 1. FTT continue supportive care, continue PT 2. Debility Planned for Home Hospice 3. HTN continue current meds 4. DM continue SSI 5. Metastatic lung ca on palliative chemo -outpatient oncology fup 6. Scrotal and sacral skin breakdown due to moisture (urination and defection on self) -sp wells cather, continue wound care History Interval history: continue to c/o of generalized weakness, no sob, no cp, pedal edema is now resolved Hospitalist Physical - Physical exam Narrative exam: Gen. appearance: Patient lying in bed, no apparent distress HEENT: Normocephalic, atraumatic, pupils equally round and reactive to light, extraocular movement intact, and no sclericterus,. No JVD or thyromegaly or nodule,neck supple, no carotid bruit ,mucous membranes moist, no exudate or erythema Heart: S1, S2, regular rate and rhythm Lungs: Clear to auscultation bilaterally, breathing comfortable Abdomen: Positive bowel sounds, nontender, nondistended, no organomegaly Extremity: trace bipedal edema Skin: skin break down around scrotum and sacrum Neuro: Oriented 3, cranial nerves II-12 intact, speech is fluent, motor and sensory intact, generalized weakness - Constitutional Vitals: Temp Pulse Resp BP Pulse Ox 98.4 F 98 H 24 145/75 96 10/26/16 20:40 10/26/16 22:11 10/26/16 20:40 10/26/16 22:11 10/26/16 20:40 Results - Labs CBC & Chem 7: 10/25/16 04:30 10/25/16 04:30 Labs: Laboratory Last Values WBC 7.8 K/mm3 (4.5-11.0) 10/25/16 04:30 RBC 4.39 M/mm3 (3.65-5.03) 10/25/16 04:30 Hgb 10.7 gm/dl (11.8-15.2) L 10/25/16 04:30 Hct 33.9 % (35.5-45.6) L D 10/25/16 04:30 MCV 77 fl (84-94) L 10/25/16 04:30 MCH 24 pg (28-32) L 10/25/16 04:30 MCHC 32 % (32-34) 10/25/16 04:30 RDW 19.8 % (13.2-15.2) H 10/25/16 04:30 Plt Count 245 K/mm3 (140-440) 10/25/16 04:30 Lymph % (Auto) 12.6 % (13.4-35.0) L 10/25/16 04:30 [place] % (Auto) 4.5 % (0.0-7.3) 10/25/16 04:30 Eos % (Auto) 1.5 % (0.0-4.3) 10/25/16 04:30 Baso % (Auto) 0.1 % (0.0-1.8) 10/25/16 04:30 Lymph # 1.0 K/mm3 (1.2-5.4) L 10/25/16 04:30 [place] # 0.3 K/mm3 (0.0-0.8) 10/25/16 04:30 Eos # 0.1 K/mm3 (0.0-0.4) 10/25/16 04:30 Baso # 0.0 K/mm3 (0.0-0.1) 10/25/16 04:30 Seg Neutrophils % 81.3 % (40.0-70.0) H 10/25/16 04:30 Seg Neutrophils # 6.3 K/mm3 (1.8-7.7) 10/25/16 04:30 Sodium 137 mmol/L (137-145) 10/25/16 04:30 Potassium 4.4 mmol/L (3.6-5.0) 10/25/16 04:30 Chloride 99.8 mmol/L (98-107) 10/25/16 04:30 Carbon Dioxide 25 mmol/L (22-30) 10/25/16 04:30 Anion Gap 17 mmol/L 10/25/16 04:30 BUN 19 mg/dL (9-20) 10/25/16 04:30 Creatinine 0.5 mg/dL (0.8-1.5) L 10/25/16 04:30 Estimated GFR > 60 ml/min 10/25/16 04:30 BUN/Creatinine Ratio 38.00 % 10/25/16 04:30 Glucose 268 mg/dL (75-100) H 10/25/16 04:30 POC Glucose 286 (70-105) H 10/26/16 22:08 Calcium 8.1 mg/dL (8.4-10.2) L 10/25/16 04:30 Total Bilirubin 0.8 mg/dL (0.1-1.2) 10/23/16 21:20 AST 21 units/L (5-40) 10/23/16 21:20 ALT 23 units/L (7-56) 10/23/16 21:20 Alkaline Phosphatase 64 units/L (35-129) 10/23/16 21:20 Total Protein 6.0 g/dL (6.3-8.2) L 10/23/16 21:20 Albumin 2.9 g/dL (3.9-5) L 10/23/16 21:20 Albumin/Globulin Ratio 0.9 % 10/23/16 21:20 Urine Color Yellow (Yellow) 10/23/16 Unknown Urine Turbidity Clear (Clear) 10/23/16 Unknown Urine pH 6.0 (5.0-7.0) 10/23/16 Unknown Ur Specific [place] 1.026 (1.003-1.030) 10/23/16 Unknown Urine Protein <15 mg/dl mg/dL (Negative) 10/23/16 Unknown Urine Glucose (UA) >=500 mg/dL (Negative) 10/23/16 Unknown Urine Ketones Neg mg/dL (Negative) 10/23/16 Unknown Urine Blood Mod (Negative) 10/23/16 Unknown Urine Nitrite Neg (Negative) 10/23/16 Unknown Urine Bilirubin Neg (Negative) 10/23/16 Unknown Urine Urobilinogen < 2.0 mg/dL (<2.0) 10/23/16 Unknown Ur Leukocyte Esterase Neg (Negative) 10/23/16 Unknown Urine WBC (Auto) 3.0 /HPF (0.0-6.0) 10/23/16 Unknown Urine RBC (Auto) 25.0 /HPF (0.0-6.0) 10/23/16 Unknown U Epithel Cells (Auto) < 1.0 /HPF (0-13.0) 10/23/16 Unknown Urine Mucus Few /HPF 10/23/16 Unknown
[2016-10-27] MEDS: PERCOCET 5/325 PO PRN ×2 (08:40→13:40)
[2016-10-27] MEDS: NOVOLOG SUB-Q SCH ×3 (08:41→17:34)
[2016-10-27] MEDS: ZOLOFT PO SCH ×2 (08:42→09:46)
[2016-10-27] MEDS: ASPIRIN PO SCH ×2 (08:42→09:44)
[2016-10-27] MEDS: LOPRESSOR PO SCH ×2 (08:42→09:45)
[2016-10-27] MEDS: PEPCID PO SCH ×2 (08:42→09:46)
[2016-10-27] MEDS: DECADRON PO SCH ×2 (08:42→09:44)
[2016-10-27] MEDS: FEOSOL PO SCH ×2 (08:42→09:45)
[2016-10-27] MEDS: LOVENOX SUB-Q SCH ×2 (08:43→09:45)
[2016-10-27 18:18] VITALS: BP 155/72
== END 2016-10-27 19:30 | disposition hospice, home (50) | DRG 641 ==
LOC: ED 20:30 → 4A 10-24 01:20
PROVIDERS: ADMIT Internal Medicine; ATTEND Internal Medicine
DX: R62.7 Adult failure to thrive (principal); C34.90 Malignant neoplasm of unspecified part of unspecified bronchus or lung; I10 Essential (primary) hypertension; M19.90 Unspecified osteoarthritis, unspecified site; E11.9 Type 2 diabetes mellitus without complications; K21.9 Gastro-esophageal reflux disease without esophagitis; Z79.82 Long term (current) use of aspirin; Z82.49 Family history of ischemic heart disease and other diseases of the circulatory system
CPT/HCPCS: 36415; 51701; 72100; 80048; 80053; 81001; 82962; 85025; 87493; J1650; J1815; J8540

== ENCOUNTER 2017-02-28 15:12 | Emergency (ER) | payer BC ==
[~2017-02-28 15:12] MED LIST: ADRENALIN ONE; ATROPINE 0.1% (CARDIAC) ONE; SODIUM BICARBONATE IV ONE
--- NOTE | 2017-02-28 17:05 | Emergency Department Report ---
ED CPR HPI - General Chief Complaint: Cardiac Arrest/CPR Stated Complaint: CARDIAC ARREST Time Seen by Provider: 02/28/17 17:00 Source: EMS Mode of arrival: Stretcher Limitations: No Limitations - History of Present Illness MD Complaint: found unresponsive, stopped breathing, collapsed during rest Bystander CPR Performed: No AED Applied by Bystander/Chief [facility]: No Shock Advised: No Initial Findings in the Field: unresponsive, no respirations, systole ROSC in the Field: No Associated Injuries: No Associated Symptoms: denies: chest pain, abdominal pain, back pain, shortness of breath, headache, dizziness/weakness, sweating, AICD discharge(s), trauma - Related Data Previous Rx's Medication Instructions Recorded Last Taken Type Aspirin [Aspirin TAB] 325 mg PO QDAY #30 tablet 10/05/16 Unknown Rx Dexamethasone [Decadron] 4 mg PO Q12HR #20 tablet 10/05/16 Unknown Rx Famotidine [Pepcid] 20 mg PO DAILY #60 tablet 10/05/16 Unknown Rx Ferrous Sulfate [Feosol 325 MG tab] 325 mg PO BID #60 tablet 10/05/16 Unknown Rx Metoprolol [Lopressor TAB] 50 mg PO BID #60 tablet 10/05/16 Unknown Rx Mirtazapine [Remeron] 15 mg PO QHS #30 tablet 10/05/16 Unknown Rx Sertraline [Zoloft] 25 mg PO QDAY #30 tablet 10/05/16 Unknown Rx oxyCODONE /ACETAMINOPHEN [Percocet 1 tab PO Q6H PRN #8 tablet 10/05/16 Unknown Rx 5/325 mg] Allergies Allergy/AdvReac Type Severity Reaction Status Date / Time No Known Allergies Allergy Unverified 10/23/16 20:41 ED Review of Systems ROS: Stated complaint: CARDIAC ARREST Other details as noted in HPI Comment: All other systems reviewed and negative ED Past Medical Hx - Past Medical History Hx Hypertension: Yes Hx Congestive Heart Failure: No Hx Diabetes: Yes Hx GERD: Yes Hx Arthritis: Yes Hx Asthma: No Hx COPD: No Hx HIV: No Additional medical history: lung cancer - Surgical History Additional Surgical History: unknown - Social History Smoking Status: Never Smoker - Medications Home Medications: Home Medications Medication Instructions Recorded Confirmed Last Taken Type Aspirin [Aspirin TAB] 325 mg PO QDAY #30 tablet 10/05/16 Unknown Rx Dexamethasone [Decadron] 4 mg PO Q12HR #20 tablet 10/05/16 Unknown Rx Famotidine [Pepcid] 20 mg PO DAILY #60 tablet 10/05/16 Unknown Rx Ferrous Sulfate [Feosol 325 MG tab] 325 mg PO BID #60 tablet 10/05/16 Unknown Rx Metoprolol [Lopressor TAB] 50 mg PO BID #60 tablet 10/05/16 Unknown Rx Mirtazapine [Remeron] 15 mg PO QHS #30 tablet 10/05/16 Unknown Rx Sertraline [Zoloft] 25 mg PO QDAY #30 tablet 10/05/16 Unknown Rx oxyCODONE /ACETAMINOPHEN [Percocet 1 tab PO Q6H PRN #8 tablet 10/05/16 Unknown Rx 5/325 mg] ED Physical Exam - General Limitations: No Limitations General appearance: lethargic, obtunded - Head Head exam: Present: atraumatic, normocephalic - Eye Eye exam: Present: normal appearance - ENT ENT exam: Present: mucous membranes moist - Neck Neck exam: Present: normal inspection - Respiratory Respiratory exam: Present: normal lung sounds bilaterally. Absent: respiratory distress, rales - Cardiovascular Cardiovascular Exam: Absent: systolic murmur, diastolic murmur, rubs, gallop - Rectal Rectal exam: Present: deferred - Extremities Exam Extremities exam: Present: normal inspection - Back Exam Back exam: Present: normal inspection - Skin Skin exam: Present: dry, cyanosis. Absent: rash ED Medical Decision Making - Medical Decision Making patient came in cardiac arrest, intubated in the ER, epi and atopine given here, Critical care attestation.: If time is entered above; I have spent that time in minutes in the direct care of this critically ill patient, excluding procedure time. ED Disposition Clinical Impression: Cardiac arrest Disposition: DC-01 TO HOME OR SELFCARE Is pt being admited?: No Does the pt Need Aspirin: No Condition: Undetermined Referrals: PRIMARY CARE,MD [Primary Care Provider] - 3-5 Days Time of Disposition: 17:06
== END 2017-02-28 18:52 | disposition home or self-care (01) ==
LOC: ED 15:12
DX: I46.9 Cardiac arrest, cause unspecified (principal); I10 Essential (primary) hypertension; K21.9 Gastro-esophageal reflux disease without esophagitis; Z85.118 Personal history of other malignant neoplasm of bronchus and lung
CPT/HCPCS: 31500; 99285; J0171; J0461